=== PATIENT | male | born 1945 | race Caucasian/White ===

== ENCOUNTER → 2017-08-22 11:25 | Outpatient (CLI) | payer MEDICARE, SELFPAY ==
[2017-08-22 12:07] LABS: Amphetamine Urine VISTA NEGATIVE (<1000 ng/mL); Barbiturate Urine VISTA NEGATIVE (< 200 ng/mL); Benzodiazepine Urine VISTA NEGATIVE (< 200 ng/mL); Cocaine Urine VISTA NEGATIVE (< 300 ng/mL); Ecstacy Urine VISTA NEGATIVE (< 500 ng/mL); Methadone Urine VISTA NEGATIVE (< 300 ng/mL); PCP Urine VISTA NEGATIVE (< 25 ng/mL); THC Urine VISTA NEGATIVE (< 50 ng/mL); Vista UDS pH Range 5
== END ==
PROVIDERS: Family Provider Family Medicine; PCP Family Medicine; Visit Provider Anesthesiology Pain Medicine
DX: F11.20 Opioid dependence, uncomplicated (principal)
CPT/HCPCS: 80307

== ENCOUNTER 2018-02-08 13:00 | Inpatient (IN) | payer MEDICARE, SELFPAY ==
[2018-02-08 13:01] VITALS: BP 183/87; PULSE 92; RESP 16; TEMP 36.6; O2SAT 97; BMI 20.7
--- NOTE | 2018-02-08 13:18 | CT_ITS ---
STUDY: CT ABDOMEN AND PELVIS WITHOUT CONTRAST REASON FOR EXAM: Male, 72 years old. LEFT FLANK PAIN RADIATION DOSAGE (If Supplied By Facility): CTDIvol = ( 6.05 ) mGy, DLP = ( 284.26 ) mGycm TECHNIQUE: Transaxial images were obtained from the dome of the diaphragm to the symphysis pubis without oral contrast, and without intravenous contrast. Sagittal and coronal images were reconstructed. Individualized dose optimization techniques were used for this CT. COMPARISON: None. FINDINGS: The visualized lung bases are unremarkable. The visualized portions of the heart are within normal limits. Normal liver. Normal gallbladder and extrahepatic biliary system. Normal spleen. Normal pancreas. Normal bilateral adrenal glands. Bilateral kidney stones the largest measures 3 mm there is no hydronephrosis. Normal visualized stomach. Normal small intestine. There are multiple colonic diverticula consistent with diverticulosis. The appendix is visualized and appears normal. Normal abdominal aorta. Normal inferior vena cava. Normal retroperitoneum. Normal urinary bladder. There is a left-sided inguinal hernia containing adipose tissue. There are diffuse degenerative changes of the visualized lumbar spine. CT/Abdomen/Pelvis without Cont IMPRESSION: Bilateral kidney stones the largest measures 3 mm there is no hydronephrosis. Electronically Signed: Cliff Mas MD at 14:27 EDT Tel , Service support ,
[2018-02-08] MEDS: HYDROmorphone 1 MG/ML Syringe IV (13:31)
[2018-02-08] MEDS: Ondansetron 4 MG/2 ML Vial IV (13:31)
[2018-02-08] MEDS: 0.9% Normal Saline 1,000 ML 150 ML IV (13:31)
[2018-02-08 13:34] LABS: Absolute Lymphocyte Count 0.83 X10^3/ul (0.83-4.51); Absolute Neutrophil Count 3.1 X10^3/uL (2.0-7.7); Basophil# 0.04 X10^3/uL; Basophil% 0.9 % (0-1); Eosinophil# 0.07 X10^3/uL; Eosinophils% 1.6 % (0-5); Hematocrit 41.8 % (40-54); Hemoglobin 15.2 g/dl (13.0-16.5); Lymphocyte # 0.83 X10^3/ul (4.0); Lymphocyte % 18.6 % (19-41); Mean Corp Hgb Conc 36.4 g/gl (32-36); Mean Corpuscular Hgb 32.7 pg (27.0-32.0); Mean Corpuscular Volume 89.9 fL (80-94); Mean Platelet Vol. 9.6 fl (6.2-12.0); Monocyte% 8.9 % (0-10); Neutrophil # 3.11 X10^3/uL (2.7-7.7); Neutrophil % 69.6 % (47-70); POSITIVE COUNT NO; POSITIVE DIFFERENTIAL NO; POSITIVE MORPHOLOGY NO; Platelet Count 159 K/mm3 (150-450); RBC Distribution Width CV 12.1 % (11.6-14.6); RBC Distribution Width SD 39.6 fl (35.1-43.9); Red Blood Count 4.65 M/mm3 (4.6-6.2); White Blood Count 4.5 K/mm3 (4.4-11.0)
[2018-02-08 13:46] LABS: Anion Gap 7 (5-15); BUN 13 mg/dL (7-18); BUN/Creat Ratio 17.5 RATIO (10-20); Calcium,Total 8.9 mg/dL (8.5-10.1); Chloride 106 mmol/L (98-107); Creatinine, Serum 0.74 mg/dL (0.70-1.30); EST Glomerular Filtration Rate 110 mL/min (>60); Est Glom Filt Rate - Afr Amer 133 mL/min (>60); Estimated Creatinine Clearance 59.98 ml/min; Glucose 96 mg/dL (74-106); Potassium 3.9 mmol/L (3.5-5.1); Sodium Level 140 mmol/L (136-145)
[2018-02-08 14:17] LABS: Bacteria 0 SEEN /hpf (None Seen); Mucous, Urine 0 SEEN /hpf (<or=2+); Red Blood Cells-Urine 0 SEEN /hpf (0-5); White Blood Cells 0 SEEN /hpf (0-5)
[2018-02-08 14:22] LABS: Color, Urine Yellow (Yellow); Glucose, Dipstick Normal (Normal); Ketone-Dipstick Negative (Negative); Leukocyte Esterase-Dipstick Negative /ul (Negative); Nitrite-Dipstick Negative (Negative); Occult Blood-Urine Negative /ul (Negative); Protein-Dipstick Negative (Negative); Urine Bilirubin Dipstick Negative (Negative); Urine Clarity Sl. Cloudy (Clear); Urine Urobilinogen Normal (Normal); Urine pH 6.5 (5.0 - 8.0)
[2018-02-08 14:28] LABS: Squamous Epithelial Cells - UA 0-5 SEEN /hpf (0-5)
--- NOTE | 2018-02-08 15:00 | ED.DCSUM_ITS ---
- ER Visit Summary Date of Service: 02/08/18 Chief Complaint: [] History of Present Illness: The patient is a 72 M [pain complaint of back pain that started yesterday. Patient has history of chronic back pain and has been seeing Dr. Reagan as well as a neurosurgeon. Patient had an MRI about a year and a half ago that showed some herniated disks as well as arthritis. Patient denies any new injury or trauma. Patient was very active over the weekend. Pain became more severe yesterday and he saw Dr. Gregory in the office today who attempted to do a muscular injection which did not give him any relief. Patient complaining of pain mostly in his left lower back. Describes some discomfort into the groin areas bilaterally with some pressure-like sensations. He denies weakness in extremities or pain radiating down the legs. He denies any change in bowel or bladder function. He denies any fevers or recent illness.] Physical Examination: [HEENT-PERRLA, EOMI. Cranial nerves II through XII grossly intact. TMs clear. Mucous membranes moist. No adenopathy. Cardiovascular-regular rate and rhythm without murmur or ectopy Lungs-clear to auscultation, chest wall stable without crepitus or subcu emphysema Abdomen-normoactive bowel sounds, soft, nontender, no rebound or rigidity, no peritoneal signs. Back exam-patient has tenderness over the left lumbar paraspinal musculature and CVA tenderness on the left. Patient has negative straight leg raises. Deep tendon reflexes are plus 2 out of 4 bilaterally at the patella and Achilles. Patient has normal L5 extension bilaterally. Patient has normal sensation to light touch. Extremities-intact ?4, normal range of motion, normal pulses, atraumatic] Test Results: [CBC with differential obtained was normal. Chemistries unremarkable. Urinalysis was normal. CT flank obtained showed small stones in both kidneys but otherwise nothing acute] Emergency Department Course and Treatment: [Patient was medicated with Dilaudid 1 mg IV and Zofran.] Patient continues to complain of pain although he is quite somnolent now. Treatment Plan: [Admit for further pain control and evaluation of his back pain] Disposition: [Admit] Impression: [Intractable back pain] This note was generated with Cel[employer] software. It may contain incorrect words, spelling, and punctuation that were not noted in review of the chart prior to signing ED Disposition - Plan for ED Patient: Chief Complaint: Back Referrals: Varinder Pappas [Primary Care Provider] -
--- NOTE | 2018-02-08 15:11 | PCM.HP.STD ---
Problem List (1) Back pain Status: Acute Qualifiers: Back pain location: low back pain Chronicity: acute Back pain laterality: midline Sciatica presence: without sciatica Qualified Code(s): M54.5 - Low back pain History of Present Illness Date of Admission: 02/08/18 Chief Complaint: back pain The patient is a 72 year old M who has mild chronic back pain was in his normal state of health up until Tuesday where the patient was helping clear tree branches. Afterwards, patient was having acute back pain that would radiate anteriorly to his abdomen but not down his legs. Saw his pain management doctor on Tuesday and patient said that he was feeling better but only returned the pain return on Tuesday the patient again returned to pain management on Tuesday and received a trigger point injection but did not help this patient was sent to the emergency room. Emergency room patient had a lab workup that was on July 10. CT the abdomen pelvis that showed nonobstructing kidney stones. Patient received IV Dilaudid and is subsequently somnolent and unable to provide any history. History is obtained through ER physician as well as patient's daughter and at bedside. [] Past Medical History Medical History: Medical History (Last Updated 02/08/18 @ 15:13 by Austin Dinero DO) Herniated disc Spinal stenosis M48.00 Allergies No Known Allergies Allergy (Verified 02/08/18 13:03) Home Medications: Ambulatory Orders Medication Instructions Recorded Hydrocodone/Acetaminophen 1 tab PO Q6H PRN PRN 02/08/18 [Hydrocodone-Acetamin 5-325 mg] Meloxicam 1 tab PO DAILY 02/08/18 Surgical History: Surgical History (Last Reviewed 02/08/18 @ 15:12 by Austin Dinero DO) History of appendectomy Z98.890, Z90.49 foreign object removal Smoking Status: Smoker, status unknown - *Family History Maternal Family History: Family History (Last Reviewed 02/08/18 @ 15:13 by Austin Dinero DO) Mother CAD (coronary artery disease) Diabetes Hypertension Father CVA (cerebral vascular accident) Hypertension Review of Systems Unable to obtain accurate/complete ROS d/t: Unable to obtain as patient is somnolent from IV Dilaudid. Comment: Unable to obtain an adequate social history due to the patient's somnolence VTE Information - Inpt Only VTE Present on Admission: No VTE Pharm Prophylaxis ordered?: Yes Patient Problems: Active and Suspected Problems (Last Reviewed 05/17/17 @ 15:13 by Will Rodriguez) Back pain (Acute) - Physical Exam General: No apparent distress, - - Somnolent. Afebrile. HEENT: Atraumatic, Normocephalic Oral: Moist Mucosa, No Gingival or Mucosal Lesions/ Ulcerations Neck: No Nodes, Thyroid Normal Size and Texture Lungs: Clear to auscultation, Normal air movement, No rhonchi, No wheeze Cardiovascular: Regular rate, Regular Rhythm, Normal S1, Normal S2, No murmurs Abdomen: Bowel Sounds Present, Soft, Non Tender, Non-Distended Extremities: No edema, No Calf Tenderness Skin: No rashes, No breakdown Musculoskeletal: No Tenderness to Palpation of Joints or Extremities, No Muscle Wasting Neurological: Cranial nerves II-XII grossly intact, Deep Tendon Reflexes 2+/4 and Symmetrical Vital Signs Temp Pulse Resp BP Pulse Ox 36.6 C 92 16 183/87 H 97 02/08/18 13:01 02/08/18 13:01 02/08/18 13:01 02/08/18 13:01 02/08/18 13:01 Oxygen Delivery Method Room Air Weight: 63.503 kg Body Mass Index (BMI) 20.7 Laboratory Tests Past 24 Hrs 02/08/18 02/08/18 02/08/18 13:27 13:27 14:10 WBC 4.5 RBC 4.65 Hgb 15.2 Hct 41.8 MCV 89.9 MCH 32.7 H MCHC 36.4 H RDW 12.1 RDW Differential 39.6 Plt Count 159 MPV 9.6 Immature Gran % (Auto) 0.400 Neut % (Auto) 69.6 Lymph % (Auto) 18.6 L [place] % (Auto) 8.9 Eos % (Auto) 1.6 Baso % (Auto) 0.9 Absolute Neuts (auto) 3.1 Absolute Lymphs (auto) 0.83 Total Counted Not Reportable Sodium 140 Potassium 3.9 Chloride 106 Carbon Dioxide 27.0 Anion Gap 7 BUN 13 Creatinine 0.74 Estim Creat Clear Calc 59.98 Est GFR (MDRD) Af Amer 133 Est GFR (MDRD) Non-Af 110 BUN/Creatinine Ratio 17.5 Glucose 96 Calcium 8.9 Urine Color Yellow Urine Clarity Sl. Cloudy Urine pH 6.5 Ur Specific [place] 1.010 Urine Protein Negative Urine Glucose (UA) Normal Urine Ketones Negative Urine Occult Blood Negative Urine Nitrite Negative Urine Bilirubin Negative Urine Urobilinogen Normal Ur Leukocyte Esterase Negative Urine RBC 0 SEEN Urine WBC 0 SEEN Ur Squamous Epith Cells 0-5 SEEN Urine Bacteria 0 SEEN Urine Mucus 0 SEEN Assessment/Plan All Active Problems (Last Reviewed 05/17/17 @ 15:13 by Will Rodriguez) Back pain (Acute) 1. Acute on chronic back pain I suspect that this is more muscular given the timing of this happening after doing some activity will check an MRI of his lumbar spine To rule out any other acute process Patient is to someone from the. Patient will be able to resume his [place] once he is becomes more awake. Patient's and daughter state that he only takes about 1/2 tablet of [place] twice daily, so I feel that the patient probably has low tolerance to narcotics. They have been state that with higher doses of [place] he does not with that too. Toradol as needed, will hold the patient's meloxicam Consult Dr. Gregory Physical and occupational therapy evaluate and treat 2. DVT prophylaxis with low back rate heparin Code Visit OBSV E&M: 18442 Initial observation care L2
--- NOTE | 2018-02-08 15:16 | HP.PCM_ITS ---
Problem List (1) Back pain Status: Acute Qualifiers: Back pain location: low back pain Chronicity: acute Back pain laterality: midline Sciatica presence: without sciatica Qualified Code(s): M54.5 - Low back pain History of Present Illness Date of Admission: 02/08/18 Chief Complaint: back pain The patient is a 72 year old M who has mild chronic back pain was in his normal state of health up until Tuesday where the patient was helping clear tree branches. Afterwards, patient was having acute back pain that would radiate anteriorly to his abdomen but not down his legs. Saw his pain management doctor on Tuesday and patient said that he was feeling better but only returned the pain return on Tuesday the patient again returned to pain management on Tuesday and received a trigger point injection but did not help this patient was sent to the emergency room. Emergency room patient had a lab workup that was on July 10. CT the abdomen pelvis that showed nonobstructing kidney stones. Patient received IV Dilaudid and is subsequently somnolent and unable to provide any history. History is obtained through ER physician as well as patient's daughter and at bedside. [] Past Medical History Medical History: Medical History (Last Updated 02/08/18 @ 15:13 by Austin Dinero DO) Herniated disc Spinal stenosis M48.00 Allergies No Known Allergies Allergy (Verified 02/08/18 13:03) Home Medications: Ambulatory Orders Medication Instructions Recorded Hydrocodone/Acetaminophen 1 tab PO Q6H PRN PRN 02/08/18 [Hydrocodone-Acetamin 5-325 mg] Meloxicam 1 tab PO DAILY 02/08/18 Surgical History: Surgical History (Last Reviewed 02/08/18 @ 15:12 by Austin Dinero DO) History of appendectomy Z98.890, Z90.49 foreign object removal Smoking Status: Smoker, status unknown - *Family History Maternal Family History: Family History (Last Reviewed 02/08/18 @ 15:13 by Austin Dinero DO) Mother CAD (coronary artery disease) Diabetes Hypertension Father CVA (cerebral vascular accident) Hypertension Review of Systems Unable to obtain accurate/complete ROS d/t: Unable to obtain as patient is somnolent from IV Dilaudid. Comment: Unable to obtain an adequate social history due to the patient's somnolence VTE Information - Inpt Only VTE Present on Admission: No VTE Pharm Prophylaxis ordered?: Yes Patient Problems: Active and Suspected Problems (Last Reviewed 05/17/17 @ 15:13 by Will Rodriguez) Back pain (Acute) - Physical Exam General: No apparent distress, - - Somnolent. Afebrile. HEENT: Atraumatic, Normocephalic Oral: Moist Mucosa, No Gingival or Mucosal Lesions/ Ulcerations Neck: No Nodes, Thyroid Normal Size and Texture Lungs: Clear to auscultation, Normal air movement, No rhonchi, No wheeze Cardiovascular: Regular rate, Regular Rhythm, Normal S1, Normal S2, No murmurs Abdomen: Bowel Sounds Present, Soft, Non Tender, Non-Distended Extremities: No edema, No Calf Tenderness Skin: No rashes, No breakdown Musculoskeletal: No Tenderness to Palpation of Joints or Extremities, No Muscle Wasting Neurological: Cranial nerves II-XII grossly intact, Deep Tendon Reflexes 2+/4 and Symmetrical Vital Signs Temp Pulse Resp BP Pulse Ox 36.6 C 92 16 183/87 H 97 02/08/18 13:01 02/08/18 13:01 02/08/18 13:01 02/08/18 13:01 02/08/18 13:01 Oxygen Delivery Method Room Air Weight: 63.503 kg Body Mass Index (BMI) 20.7 Laboratory Tests Past 24 Hrs 02/08/18 02/08/18 02/08/18 13:27 13:27 14:10 WBC 4.5 RBC 4.65 Hgb 15.2 Hct 41.8 MCV 89.9 MCH 32.7 H MCHC 36.4 H RDW 12.1 RDW Differential 39.6 Plt Count 159 MPV 9.6 Immature Gran % (Auto) 0.400 Neut % (Auto) 69.6 Lymph % (Auto) 18.6 L [place] % (Auto) 8.9 Eos % (Auto) 1.6 Baso % (Auto) 0.9 Absolute Neuts (auto) 3.1 Absolute Lymphs (auto) 0.83 Total Counted Not Reportable Sodium 140 Potassium 3.9 Chloride 106 Carbon Dioxide 27.0 Anion Gap 7 BUN 13 Creatinine 0.74 Estim Creat Clear Calc 59.98 Est GFR (MDRD) Af Amer 133 Est GFR (MDRD) Non-Af 110 BUN/Creatinine Ratio 17.5 Glucose 96 Calcium 8.9 Urine Color Yellow Urine Clarity Sl. Cloudy Urine pH 6.5 Ur Specific [place] 1.010 Urine Protein Negative Urine Glucose (UA) Normal Urine Ketones Negative Urine Occult Blood Negative Urine Nitrite Negative Urine Bilirubin Negative Urine Urobilinogen Normal Ur Leukocyte Esterase Negative Urine RBC 0 SEEN Urine WBC 0 SEEN Ur Squamous Epith Cells 0-5 SEEN Urine Bacteria 0 SEEN Urine Mucus 0 SEEN Assessment/Plan All Active Problems (Last Reviewed 05/17/17 @ 15:13 by Will Rodriguez) Back pain (Acute) 1. Acute on chronic back pain * I suspect that this is more muscular given the timing of this happening after doing some activity * will check an MRI of his lumbar spine To rule out any other acute process * Patient is to someone from the. Patient will be able to resume his [place] once he is becomes more awake. Patient's and daughter state that he only takes about 1/2 tablet of [place] twice daily, so I feel that the patient probably has low tolerance to narcotics. They have been state that with higher doses of [place] he does not with that too. * Toradol as needed, will hold the patient's meloxicam * Consult Dr. Gregory * Physical and occupational therapy evaluate and treat 2. DVT prophylaxis with low back rate heparin Code Visit OBSV E&M: 74152 Initial observation care L2
[2018-02-08 15:19] VITALS: BP 179/84; PULSE 84; RESP 18; O2SAT 99
--- NOTE | 2018-02-08 15:19 | MRI_ITS ---
STUDY: MRI LUMBAR SPINE WITHOUT CONTRAST REASON FOR EXAM: Male, 72 years old. Chronic worsening back pain TECHNIQUE: Standardized fat and water weighted pulse sequences were obtained in the sagittal and axial planes. COMPARISON: None FINDINGS: T12-L1: Disc space narrowing and desiccation with discogenic endplate changes and anterior osteophytes. Bulging annulus with moderate to severe bilateral foraminal stenoses. Normal lumbar lordosis. Mild S shaped scoliosis. Normal conus medullaris that terminates at the L1 level. L1-2: Disc space narrowing and desiccation with discogenic endplate changes and anterior osteophytes. Bulging annulus and bilateral facet hypertrophy with mild central canal stenosis, moderate left lateral recess stenosis, and moderate to severe left foraminal stenosis. L2-3: Disc space narrowing and desiccation with discogenic endplate changes and anterior osteophytes. Bulging annulus and bilateral facet hypertrophy with mild central canal stenosis and moderate to severe left and moderate right foraminal stenoses. L3-4: Bulging annulus and bilateral facet hypertrophy with mild central canal stenosis and moderate to severe left and moderate right foraminal stenoses. L4-5: Disc space narrowing and desiccation with discogenic endplate changes and anterior osteophytes. Bulging annulus and bilateral facet hypertrophy with mild central canal stenosis and severe right and moderate left foraminal stenoses. L5-S1: Disc space narrowing and desiccation with discogenic endplate changes and anterior osteophytes. Bulging annulus and bilateral facet hypertrophy with severe bilateral foraminal stenoses. Normal visualized sacral ala. Normal visualized paraspinous soft tissue structures. MRI/Spine Lumbar (Routine) IMPRESSION: Multilevel degenerative disease as described. Severe foraminal stenoses are present on the right at L4-5 and bilaterally at L5-S1. Electronically Signed: Reji Balbuena MD at 3:58 EDT Tel , Service support ,
[2018-02-08 15:25] VITALS: BMI 20.7; BMI 21.0
[2018-02-08 15:40] VITALS: BP 178/96; PULSE 89; RESP 14; TEMP 36.7; O2SAT 98
--- NOTE | 2018-02-08 16:43 | NURSING ---
Just got back from MRI.
[2018-02-08] MEDS: Ketorolac 15 MG/ML Vial IV (17:26)
[2018-02-08] MEDS: 0.9% NaCl Peripheral Flush Adult/Peds IV (17:26)
[2018-02-08 17:28] VITALS: BP 159/90; PULSE 81; RESP 18; TEMP 37; O2SAT 96
[2018-02-08] MEDS: diazePAM 5 MG Tablet PO (20:30)
[2018-02-08] MEDS: Tamsulosin HCl 0.4 MG Capsule PO (20:30)
[2018-02-08 20:44] VITALS: BP 153/96; PULSE 92; RESP 16; TEMP 36.9; O2SAT 96
[2018-02-09] MEDS: Ketorolac 15 MG/ML Vial IV (02:16)
[2018-02-09] MEDS: 0.9% NaCl Peripheral Flush Adult/Peds IV ×3 (02:17→17:53)
[2018-02-09 02:21] VITALS: BP 131/77; PULSE 72; RESP 16; TEMP 36.9; O2SAT 95
[2018-02-09] MEDS: HYDROcodone Bitartrate/Apap 5/325 Tablet PO ×3 (04:00→21:26)
[2018-02-09] MEDS: diazePAM 5 MG Tablet PO ×2 (08:48→19:31)
[2018-02-09 08:50] VITALS: BP 156/70; PULSE 83; RESP 16; TEMP 36.7; O2SAT 94
[2018-02-09] MEDS: Enoxaparin 40 MG/0.4 ML Syringe SC (09:07)
--- NOTE | 2018-02-09 10:14 | PCM.PN.HOSP ---
Patient Problems: Active and Suspected Problems (Last Updated 02/08/18 @ 15:13 by Austin Dinero DO) Back pain (Acute) Subjective: Still in a significant amount of pain that is not managed by his previous pain regimen Vitals/I&O's: Vital Signs Temp Pulse Resp BP Pulse Ox 98.1 F 83 16 156/70 H 94 02/09/18 08:50 02/09/18 08:50 02/09/18 08:50 02/09/18 08:50 02/09/18 08:50 Oxygen Delivery Method Room Air Weight: 142 lb 3.17 oz Body Mass Index (BMI) 21.0 Intake and Output for Last 24 Hours 02/07/18 02/08/18 02/09/18 23:59 23:59 23:59 Intake Total 150 / 150 Output Total 490 / 490 Balance -340 / -340 General: Alert, Oriented x3, Cooperative, No apparent distress HEENT: Atraumatic, EOMI, Normocephalic Oral: Moist Mucosa Neck: Supple, No JVD Lungs: Clear to auscultation, Normal air movement, No rhonchi, No wheeze, No rales Cardiovascular: Regular rate, Regular Rhythm, Normal S1, Normal S2, No murmurs Abdomen: Soft, Non Tender, Non-Distended, No Hepato-splenomegaly Extremities: No edema, Capillary Refill Less than 3 Seconds Skin: No rashes, No breakdown Musculoskeletal: No Tenderness to Palpation of Joints or Extremities Neurological: Deep Tendon Reflexes 2+/4 and Symmetrical, Neuro grossly intact, Sensory exam intact to light touch and pain Psych/Mental Status: Normal Affect, Appropriate Laboratory Results 02/08/18 13:27: WBC 4.5, RBC 4.65, Hgb 15.2, Hct 41.8, MCV 89.9, MCH 32.7 H, MCHC 36.4 H, RDW 12.1, RDW Differential 39.6, Plt Count 159, MPV 9.6, Immature Gran % (Auto) 0.400, Neut % (Auto) 69.6, Lymph % (Auto) 18.6 L, [place] % (Auto) 8.9, Eos % (Auto) 1.6, Baso % (Auto) 0.9, Absolute Neuts (auto) 3.1, Absolute Lymphs (auto) 0.83, Total Counted Not Reportable 02/08/18 13:27: Sodium 140, Potassium 3.9, Chloride 106, Carbon Dioxide 27.0, Anion Gap 7, BUN 13, Creatinine 0.74, Estim Creat Clear Calc 59.98, Est GFR (MDRD) Af Amer 133, Est GFR (MDRD) Non-Af 110, BUN/Creatinine Ratio 17.5, Glucose 96, Calcium 8.9 02/08/18 14:10: Urine Color Yellow, Urine Clarity Sl. Cloudy, Urine pH 6.5, Ur Specific [place] 1.010, Urine Protein Negative, Urine Glucose (UA) Normal, Urine Ketones Negative, Urine Occult Blood Negative, Urine Nitrite Negative, Urine Bilirubin Negative, Urine Urobilinogen Normal, Ur Leukocyte Esterase Negative, Urine RBC 0 SEEN, Urine WBC 0 SEEN, Ur Squamous Epith Cells 0-5 SEEN, Urine Bacteria 0 SEEN, Urine Mucus 0 SEEN Current Medications Acetaminophen (Tylenol) 650 mg PO Q6H PRN PRN PRN Reason: Mild Pain (1-3)/Temp > 100.7 F Hydrocodone Bitart/Acetaminophen ([place] 5mg-325mg) 1 tablet PO Q6H PRN PRN PRN Reason: PAIN Last Admin: 02/09/18 04:00 Dose: 1 tablet Diazepam (Valium) 5 mg PO TID PRN PRN PRN Reason: muscle spasms Last Admin: 02/09/18 08:48 Dose: 5 mg Enoxaparin Sodium (Lovenox) 40 mg SC DAILY@1000 RAKAN Last Admin: 02/09/18 09:07 Dose: 40 mg Ketorolac Tromethamine (Toradol) 30 mg IV Q6H PRN PRN PRN Reason: PAIN Stop: 02/14/18 08:01 Magnesium Hydroxide (Milk Of Magnesia) 30 ml PO DAILY PRN PRN PRN Reason: Constipation Ondansetron HCl (Zofran) 4 mg IV Q8H PRN PRN PRN Reason: NAUSEA Sodium Chloride () 5 - 30 ml IV UD PRN PRN Reason: SALINE FLUSH Last Admin: 02/09/18 02:17 Dose: 10 ml Tamsulosin HCl (Flomax) 0.4 mg PO DAILY@1730 RAKAN Last Admin: 02/08/18 20:30 Dose: 0.4 mg Medical Necessity - Tobacco Use Smoking Status: Former smoker Tobacco Use: Pipe Assessment/Plan All Active Problems (Last Updated 02/08/18 @ 15:13 by Austin Dinero DO) Back pain (Acute) 1. Acute on chronic back pain - MRI with significant foraminal stenosis at L4-5 and 5-S1 - States he saw a surgeon who said he was non-operative candidate - No stenosis or cauda equina - Will continue with pain management and consult Dr. Bri Murcia to help with spasms - PT/OT 2. Nephrolithiasis - Unsure if the kidney stones are new - Will c/w toradal 30 mg for the pain and add flomax DVT: Heparin Diet: Regular Code Visit Inpatient E&M: [id number] Subs Hosp L2
[2018-02-09] MEDS: Ketorolac 30 MG/ML Syringe IV (12:23)
[2018-02-09 14:20] VITALS: BP 141/66; PULSE 94; RESP 16; TEMP 36.8; O2SAT 97
--- NOTE | 2018-02-09 14:38 | CASEMGMT ---
RN CM Assessment. PCP: Dr. Pappas Pharmacy: [facility] Living arrangements: lives with in two story home. Did not use ambulatory devices prior to admission. Intro role of CM to patient, his and daughter in room. Discussed options on dc of SNF vs home with [facility]. Pt only ambulated 5'today and was very painful. Pt would like to return home, but safety concerns were discussed if pt could not safely ambulate longer distance. His bedroom is on second floor, however family is willing to bring bed to first floor. -Awaiting Dr. Gregory consult today and PT/OT tomorrow and will speak with pt/family again. DC PLAN: undetermined.
--- NOTE | 2018-02-09 15:45 | CHAPLAIN ---
Type of Pastoral Visit _x__ Initial Visit ___ Follow-up Visit ___ On-call Visit ___ General Patient Visit ___ Spiritual Assessment ___ Family Conference ___ Bereavement ___ Rapid Response ___ Code Blue ___ Other (describe below) Pastoral Care Referral From _x__ Patient ___ Family ___ Nurse ___ Physician ___ Gas Engine Repairer ___ Gift Shop Clerk ___ Other (describe below) Sacrament/Intervention ___ Active listening ___ Anointing ___ Mormon ___ Bereavement ___ Communion ___ Selin exploration ___ ___ Life review ___ Prayer ___ Reconciliation ___ Sacrament of Sick _x__ Supportive presence ___ Wedding ___ Other (describe below) Pastoral Comments family members in room visiting with patient; made offer of support as needed
[2018-02-09] MEDS: Tamsulosin HCl 0.4 MG Capsule PO (17:47)
[2018-02-09] MEDS: 0.9% Normal Saline 1,000 ML 100 ML IV (17:54)
[2018-02-09 20:50] VITALS: BP 135/69; PULSE 82; RESP 16; TEMP 36.9; O2SAT 97
[2018-02-10] VITALS (7 sets, daily range): BP systolic 135–153; BP diastolic 65–83; PULSE 71–104; RESP 14–20; TEMP 36.7–36.9; O2SAT 96–98
[2018-02-10] MEDS: 0.9% Normal Saline 1,000 ML 100 ML IV ×2 (02:59→14:55)
[2018-02-10] MEDS: Ketorolac 30 MG/ML Syringe IV ×3 (03:54→21:27)
--- NOTE | 2018-02-10 07:30 | NURSING ---
Called to update pt's daughter, Cathy, on pt's condition. She and her mom were wondering last night when Dr. Gregory would be in to see the pt so updated her that Dr. Gregory would not be in and that he wanted urology consulted for the pt's kidney stones. Also made her aware how drowsy pt was overnight. Pt's daughter stated that's how he gets with his pain medicine and that she is nervous about it. Emotional support provided and will pass on to dayshift RN.
--- NOTE | 2018-02-10 11:05 | CASEMGMT ---
Addendum entered by Jerry Boyle 02/10/18 13:15: walker script faxed to [facility]-pt has [employer] insurance. Original Note: RN CM Note. spoke with re: dc planning and PT notes. Pt is sleepy and not able to participate @ this time. Agreeable to script for wheeled walker being sent to [facility] for delivery to hospital and discussed PT recommendation for outpt and aquatic therapy. Script received from physician. -THORNE form reviewed with and signed. Copy to chart. -Anticipate home with outpt therapy. Stacy VELAN RN ACM
[2018-02-10] MEDS: Enoxaparin 40 MG/0.4 ML Syringe SC (11:13)
--- NOTE | 2018-02-10 13:28 | CASEMGMT ---
SW spoke w/pt, daughter and in room in regard to discharge planning, as pt needed the assist of 2 with therapy. Pt states he still plans to go home from here, rather than to a skilled nursing for rehab. SW asked if she feels she can manage pt at home, she states she does--states they plan to bring the bed downstairs. states they got a walker, asked about the outpt therapy and possible water therapy, states that the piano case maker was working on this. SW explained will ask the CM about this. SW did give the list of SNFs in network w/pt's [employer] in the event they change their mind and do not feel they can manage at home. SW remains available, did ask CM about outpt order, she has this for pt. AUSTIN Cartagena, COBOL ENGINEER
--- NOTE | 2018-02-10 14:17 | DCINST_ITS ---
- Discharge Diagnoses Current Active Problems: Current Active and Chronic Problems (Last Updated 02/08/18 @ 15:13 by Austin Dinero DO) Back pain (Acute) You will use the following diet at home:: No restrictions Your food should be the consistency of: Regular Your liquids should be the consistency of: Regular/Thin Call your doctor if you observe: Numbness or Tingling, Inability to urinate, Inability to have a bowel movement Allergies/Adverse Reactions: Allergies No Known Allergies Allergy (Verified 02/08/18 13:03) Medications to take at Discharge Hydrocodone/Acetaminophen [Hydrocodone-Acetamin 5-325 mg] 1 tab PO Q6H PRN PRN 02/08/18 Meloxicam 1 tab PO DAILY 02/08/18 Diazepam [Valium] 5 mg PO BID PRN #10 tab 02/10/18 The following prescriptions were given: Diazepam [Valium] 5 mg PO BID PRN #10 tab PRN Reason: Muscle Spasm Primary Care Physician: Varinder Pappas [Primary Care Provider] - Please follow up with your Primary Care Physician in: in 3-5 days Test Results: Test results from this visit will be discussed in further detail at your follow- up appointment, if applicable.
--- NOTE | 2018-02-10 14:18 | PCM.DC.SUM ---
Discharge Date and Diagnosis - Problem List Patient Problems: Active and Suspected Problems (Last Updated 02/08/18 @ 15:13 by Austin Dinero DO) Back pain (Acute) Date of Admission: 02/08/18 Date of Discharge: 02/10/18 - Primary Discharge Diagnosis Active and Suspected Problems (Last Updated 02/08/18 @ 15:13 by Austin Dinero DO) Back pain (Acute) Hospital Course and Treatment Imaging Results: CT abd/pelvis: IMPRESSION: Bilateral kidney stones the largest measures 3 mm there is no hydronephrosis MRI Lumbar: IMPRESSION: Multilevel degenerative disease as described. Severe foraminal stenoses are present on the right at L4-5 and bilaterally at L5-S1. Consults: Pain Management Operations: None Procedures: None Summary of Care Provided: HPI: The patient is a 72 year old M who has mild chronic back pain was in his normal state of health up until Tuesday where the patient was helping clear tree branches. Afterwards, patient was having acute back pain that would radiate anteriorly to his abdomen but not down his legs. Saw his pain management doctor on Tuesday and patient said that he was feeling better but only returned the pain return on Tuesday the patient again returned to pain management on Tuesday and received a trigger point injection but did not help this patient was sent to the emergency room. Emergency room patient had a lab workup that was on July 10. CT the abdomen pelvis that showed nonobstructing kidney stones. Patient received IV Dilaudid and is subsequently somnolent and unable to provide any history. History is obtained through ER physician as well as patient's daughter and at bedside. Vital Signs - 24 hr Temp Pulse Resp BP Pulse Ox 02/10/18 11:03 98.3 F 88 16 153/75 H 98 02/10/18 08:44 98.2 F 88 18 145/71 H 98 02/10/18 03:41 98.4 F 81 18 139/70 H 96 02/10/18 02:48 98.4 F 71 14 135/65 H 97 02/10/18 01:38 98.4 F 77 16 141/69 H 97 02/09/18 20:50 98.4 F 82 16 135/69 H 97 General: Alert, Oriented x3, Cooperative, No apparent distress HEENT: Atraumatic, EOMI, Normocephalic Oral: Moist Mucosa Neck: Supple, No JVD Lungs: Clear to auscultation, Normal air movement, No rhonchi, No wheeze, No rales Cardiovascular: Regular rate, Regular Rhythm, Normal S1, Normal S2, No murmurs Abdomen: Soft, Non Tender, Non-Distended, No Hepato-splenomegaly Extremities: No edema, Capillary Refill Less than 3 Seconds Skin: No rashes, No breakdown Musculoskeletal: No Tenderness to Palpation of Joints or Extremities, left paraspinal muscle spasm and pain Neurological: Deep Tendon Reflexes 2+/4 and Symmetrical, Neuro grossly intact, Sensory exam intact to light touch and pain Hospital Cpu Call your doctor if you observe: Numbness or Tingling, Inability to urinate, Inability to have a bowel movement Home Medications: Medications to take at Discharge Hydrocodone/Acetaminophen [Hydrocodone-Acetamin 5-325 mg] 1 tab PO Q6H PRN PRN 02/08/18 Meloxicam 1 tab PO DAILY 02/08/18 Diazepam [Valium] 5 mg PO BID PRN #10 tab 02/10/18 Following Prescrptions Were Given to Patient: Diazepam [Valium] 5 mg PO BID PRN #10 tab PRN Reason: Muscle Spasm Primary Care Physician: Varinder Pappas [Primary Care Provider] - Please follow up with your Primary Care Physician in: in 3-5 days Medical Necessity - Tobacco Use Smoking Status: Former smoker Tobacco Use: Pipe
--- NOTE | 2018-02-10 14:49 | PCM.PN.HOSP ---
Patient Problems: Active and Suspected Problems (Last Updated 02/08/18 @ 15:13 by Austin Dinero DO) Back pain (Acute) Subjective: Still with significant pain. Unable to walk even with PT. Pain management consulted Objective: General: Alert, Oriented x3, Cooperative, No apparent distress HEENT: Atraumatic, EOMI, Normocephalic Oral: Moist Mucosa Neck: Supple, No JVD Lungs: Clear to auscultation, Normal air movement, No rhonchi, No wheeze, No rales Cardiovascular: Regular rate, Regular Rhythm, Normal S1, Normal S2, No murmurs Abdomen: Soft, Non Tender, Non-Distended, No Hepato-splenomegaly Extremities: No edema, Capillary Refill Less than 3 Seconds Skin: No rashes, No breakdown Musculoskeletal: No Tenderness to Palpation of Joints or Extremities, left paraspinal muscle spasm and pain Neurological: Deep Tendon Reflexes 2+/4 and Symmetrical, Neuro grossly intact, Sensory exam intact to light touch and pain Vitals/I&O's: Vital Signs Temp Pulse Resp BP Pulse Ox 98.3 F 88 16 153/75 H 98 02/10/18 11:03 02/10/18 11:03 02/10/18 11:03 02/10/18 11:03 02/10/18 11:03 Oxygen Delivery Method Room Air Weight: 142 lb 3.17 oz Body Mass Index (BMI) 21.0 Intake and Output for Last 24 Hours 02/08/18 02/09/18 02/10/18 23:59 23:59 23:59 Intake Total 1230 / 1230 2167 / 2167 Output Total 890 / 890 600 / 600 Balance 340 / 340 1567 / 1567 Current Medications Acetaminophen (Tylenol) 650 mg PO Q6H PRN PRN PRN Reason: Mild Pain (1-3)/Temp > 100.7 F Hydrocodone Bitart/Acetaminophen ([place] 5mg-325mg) 1 tablet PO Q6H PRN PRN PRN Reason: PAIN Last Admin: 02/09/18 21:26 Dose: 1 tablet Enoxaparin Sodium (Lovenox) 40 mg SC DAILY@1000 RAKAN Last Admin: 02/10/18 11:13 Dose: 40 mg Sodium Chloride () 1,000 mls @ 100 mls/hr IV .Q10H RAKAN Last Admin: 02/10/18 13:33 Dose: Not Given Ketorolac Tromethamine (Toradol) 30 mg IV Q6H PRN PRN PRN Reason: PAIN Stop: 02/14/18 08:01 Last Admin: 02/10/18 03:54 Dose: 30 mg Magnesium Hydroxide (Milk Of Magnesia) 30 ml PO DAILY PRN PRN PRN Reason: Constipation Morphine Sulfate () 2 - 4 mg IV Q4H PRN PRN PRN Reason: SEVERE PAIN (6-10/10) Morphine Sulfate () 2 - 4 mg IV Q4H PRN PRN PRN Reason: SEVERE PAIN (6-10/10) Ondansetron HCl (Zofran) 4 mg IV Q8H PRN PRN PRN Reason: NAUSEA Sodium Chloride () 5 - 30 ml IV UD PRN PRN Reason: SALINE FLUSH Last Admin: 02/09/18 17:53 Dose: 10 ml Tamsulosin HCl (Flomax) 0.4 mg PO DAILY@1730 [facility] Last Admin: 02/09/18 17:47 Dose: 0.4 mg Medical Necessity - Tobacco Use Smoking Status: Former smoker Tobacco Use: Pipe Assessment/Plan All Active Problems (Last Updated 02/08/18 @ 15:13 by Austin Dinero DO) Back pain (Acute) 1. Acute on chronic back pain - MRI with significant foraminal stenosis at L4-5 and 5-S1 - States he saw a surgeon who said he was non-operative candidate - No stenosis or cauda equina - C/s to Dr. Gregory who refuses to come in because the pain is d/t the kidney stone which are not in the ureter but in the kidney proper - Valium to help with spasms - PT/OT 2. Nephrolithiasis - Unsure if the kidney stones are new - Will c/w toradal 30 mg for the pain and c/w flomax in case the stones move DVT: Heparin Diet: Regular Code Visit OBSV E&M: 07720 Initial observation care L2
--- NOTE | 2018-02-10 14:52 | PN_ITS ---
Patient Problems: Active and Suspected Problems (Last Updated 02/08/18 @ 15:13 by Austin Dinero DO) Back pain (Acute) Subjective: Still with significant pain. Unable to walk even with PT. Pain management consulted Objective: General: Alert, Oriented x3, Cooperative, No apparent distress HEENT: Atraumatic, EOMI, Normocephalic Oral: Moist Mucosa Neck: Supple, No JVD Lungs: Clear to auscultation, Normal air movement, No rhonchi, No wheeze, No rales Cardiovascular: Regular rate, Regular Rhythm, Normal S1, Normal S2, No murmurs Abdomen: Soft, Non Tender, Non-Distended, No Hepato-splenomegaly Extremities: No edema, Capillary Refill Less than 3 Seconds Skin: No rashes, No breakdown Musculoskeletal: No Tenderness to Palpation of Joints or Extremities, left paraspinal muscle spasm and pain Neurological: Deep Tendon Reflexes 2+/4 and Symmetrical, Neuro grossly intact, Sensory exam intact to light touch and pain Vitals/I&O's: Vital Signs Temp Pulse Resp BP Pulse Ox 98.3 F 88 16 153/75 H 98 02/10/18 11:03 02/10/18 11:03 02/10/18 11:03 02/10/18 11:03 02/10/18 11:03 Oxygen Delivery Method Room Air Weight: 142 lb 3.17 oz Body Mass Index (BMI) 21.0 Intake and Output for Last 24 Hours 02/08/18 02/09/18 02/10/18 23:59 23:59 23:59 Intake Total 1230 / 1230 2167 / 2167 Output Total 890 / 890 600 / 600 Balance 340 / 340 1567 / 1567 Current Medications Acetaminophen (Tylenol) 650 mg PO Q6H PRN PRN PRN Reason: Mild Pain (1-3)/Temp > 100.7 F Hydrocodone Bitart/Acetaminophen ([place] 5mg-325mg) 1 tablet PO Q6H PRN PRN PRN Reason: PAIN Last Admin: 02/09/18 21:26 Dose: 1 tablet Enoxaparin Sodium (Lovenox) 40 mg SC DAILY@1000 [facility] Last Admin: 02/10/18 11:13 Dose: 40 mg Sodium Chloride () 1,000 mls @ 100 mls/hr IV .Q10H [facility] Last Admin: 02/10/18 13:33 Dose: Not Given Ketorolac Tromethamine (Toradol) 30 mg IV Q6H PRN PRN PRN Reason: PAIN Stop: 02/14/18 08:01 Last Admin: 02/10/18 03:54 Dose: 30 mg Magnesium Hydroxide (Milk Of Magnesia) 30 ml PO DAILY PRN PRN PRN Reason: Constipation Morphine Sulfate () 2 - 4 mg IV Q4H PRN PRN PRN Reason: SEVERE PAIN (6-10/10) Morphine Sulfate () 2 - 4 mg IV Q4H PRN PRN PRN Reason: SEVERE PAIN (6-10/10) Ondansetron HCl (Zofran) 4 mg IV Q8H PRN PRN PRN Reason: NAUSEA Sodium Chloride () 5 - 30 ml IV UD PRN PRN Reason: SALINE FLUSH Last Admin: 02/09/18 17:53 Dose: 10 ml Tamsulosin HCl (Flomax) 0.4 mg PO DAILY@1730 [facility] Last Admin: 02/09/18 17:47 Dose: 0.4 mg Medical Necessity - Tobacco Use Smoking Status: Former smoker Tobacco Use: Pipe Assessment/Plan All Active Problems (Last Updated 02/08/18 @ 15:13 by Austin Dinero DO) Back pain (Acute) 1. Acute on chronic back pain - MRI with significant foraminal stenosis at L4-5 and 5-S1 - States he saw a surgeon who said he was non-operative candidate - No stenosis or cauda equina - C/s to Dr. Gregory who refuses to come in because the pain is d/t the kidney stone which are not in the ureter but in the kidney proper - Valium to help with spasms - PT/OT 2. Nephrolithiasis - Unsure if the kidney stones are new - Will c/w toradal 30 mg for the pain and c/w flomax in case the stones move DVT: Heparin Diet: Regular Code Visit OBSV E&M: 51431 Initial observation care L2
--- NOTE | 2018-02-10 14:54 | CASEMGMT ---
RN CM Note: Call to JOELLE Thomas who states they were not able to ambulate pt due to pain. and daughter are not comfortable taking pt home as he has great difficulty ambulating. Call to Dr. Carson, agreeable to have pt remain tonight. Family is moving 2nd floor bed to downstairs and will be available to assist pt. Home Health declined, may consider outpt therapy-script given to . -[facility] called, walker script received and will be delivered this afternoon. Stacy KATHLEEN RN ACM
--- NOTE | 2018-02-10 15:01 | CHAPLAIN ---
Type of Pastoral Visit ___ Initial Visit _x__ Follow-up Visit ___ On-call Visit ___ General Patient Visit ___ Spiritual Assessment ___ Family Conference ___ Bereavement ___ Rapid Response ___ Code Blue ___ Other (describe below) Pastoral Care Referral From _x__ Patient ___ Family ___ Nurse ___ Physician ___ Hot Frame Tender ___ Cigar Head Pegger ___ Other (describe below) Sacrament/Intervention _x__ Active listening ___ Anointing ___ Sikh ___ Bereavement ___ Communion ___ Selin exploration ___ _x__ Life review _x__ Prayer ___ Reconciliation ___ Sacrament of Sick _x__ Supportive presence ___ Wedding ___ Other (describe below) Pastoral Comments had more time today with patient to hear more of his health history and how he herlinda with pain and limitations; family members are with him but give him more opportunity to talk; pt has hobbies that are helpful; pt welcomed prayer and visit
[2018-02-10] MEDS: Tamsulosin HCl 0.4 MG Capsule PO (17:41)
[2018-02-10] MEDS: Acetaminophen 325 MG Tablet 650 MG PO (19:52)
[2018-02-10] MEDS: 0.9% NaCl Peripheral Flush Adult/Peds IV (21:27)
[2018-02-11 01:55] VITALS: BP 146/76; PULSE 69; RESP 16; TEMP 36.2; O2SAT 97
[2018-02-11] MEDS: Acetaminophen 325 MG Tablet 650 MG PO (02:03)
[2018-02-11] MEDS: diazePAM 5 MG Tablet PO ×2 (02:03→10:59)
[2018-02-11] MEDS: 0.9% Normal Saline 1,000 ML 100 ML IV ×3 (02:04→20:43)
[2018-02-11 06:10] VITALS: BP 161/81; PULSE 57; RESP 16; TEMP 36.4; O2SAT 96
[2018-02-11] MEDS: 0.9% NaCl Peripheral Flush Adult/Peds IV ×2 (06:17→17:06)
[2018-02-11] MEDS: Ketorolac 30 MG/ML Syringe IV ×2 (06:17→17:06)
[2018-02-11 08:07] VITALS: BP 157/78; PULSE 79; RESP 18; TEMP 36.9; O2SAT 98
[2018-02-11] MEDS: Enoxaparin 40 MG/0.4 ML Syringe SC (09:21)
--- NOTE | 2018-02-11 09:44 | PN_ITS ---
Patient Problems: Active and Suspected Problems (Last Updated 02/08/18 @ 15:13 by Austin Dinero DO) Back pain (Acute) Subjective: Continues to be in pain, the valium helps some and the narcotics snow him. He was unable to walk with therapy yesterday, will attempt again today. Not for a lack of effort, but because of the pain. Objective: General: Alert, Oriented x3, Cooperative, No apparent distress HEENT: Atraumatic, EOMI, Normocephalic Oral: Moist Mucosa Neck: Supple, No JVD Lungs: Clear to auscultation, Normal air movement, No rhonchi, No wheeze, No rales Cardiovascular: Regular rate, Regular Rhythm, Normal S1, Normal S2, No murmurs Abdomen: Soft, Non Tender, Non-Distended, No Hepato-splenomegaly Extremities: No edema, Capillary Refill Less than 3 Seconds Skin: No rashes, No breakdown Musculoskeletal: No Tenderness to Palpation of Joints or Extremities, left paraspinal muscle spasm and pain Neurological: Deep Tendon Reflexes 2+/4 and Symmetrical, Neuro grossly intact, Sensory exam intact to light touch and pain Vitals/I&O's: Vital Signs Temp Pulse Resp BP Pulse Ox 98.4 F 79 18 157/78 H 98 02/11/18 08:07 02/11/18 08:07 02/11/18 08:07 02/11/18 08:07 02/11/18 08:07 Oxygen Delivery Method Room Air Weight: 142 lb 3.17 oz Body Mass Index (BMI) 21.0 Intake and Output for Last 24 Hours 02/09/18 02/10/18 02/11/18 23:59 23:59 23:59 Intake Total 1230 / 1230 3568 / 3568 1542 / 1542 Output Total 890 / 890 1400 / 1400 1375 / 1375 Balance 340 / 340 2168 / 2168 167 / 167 Current Medications Acetaminophen (Tylenol) 650 mg PO Q6H PRN PRN PRN Reason: Mild Pain (1-3)/Temp > 100.7 F Last Admin: 02/11/18 02:03 Dose: 650 mg Hydrocodone Bitart/Acetaminophen ([place] 5mg-325mg) 1 tablet PO Q6H PRN PRN PRN Reason: PAIN Last Admin: 10/04/18 21:26 Dose: 1 tablet Diazepam (Valium) 5 mg PO TID PRN PRN PRN Reason: MUSCLE SPASM Last Admin: 02/11/18 02:03 Dose: 5 mg Enoxaparin Sodium (Lovenox) 40 mg SC DAILY@1000 [facility] Last Admin: 02/11/18 09:21 Dose: 40 mg Sodium Chloride () 1,000 mls @ 100 mls/hr IV .Q10H [facility] Last Admin: 02/11/18 02:04 Dose: 100 mls/hr Ketorolac Tromethamine (Toradol) 30 mg IV Q6H PRN PRN PRN Reason: PAIN Stop: 02/14/18 08:01 Last Admin: 02/11/18 06:17 Dose: 30 mg Magnesium Hydroxide (Milk Of Magnesia) 30 ml PO DAILY PRN PRN PRN Reason: Constipation Morphine Sulfate () 2 - 4 mg IV Q4H PRN PRN PRN Reason: SEVERE PAIN (6-10/10) Morphine Sulfate () 2 - 4 mg IV Q4H PRN PRN PRN Reason: SEVERE PAIN (6-10/10) Ondansetron HCl (Zofran) 4 mg IV Q8H PRN PRN PRN Reason: NAUSEA Sodium Chloride () 5 - 30 ml IV UD PRN PRN Reason: SALINE FLUSH Last Admin: 02/11/18 06:17 Dose: 10 ml Tamsulosin HCl (Flomax) 0.4 mg PO DAILY@1730 [facility] Last Admin: 02/10/18 17:41 Dose: 0.4 mg Medical Necessity - Tobacco Use Smoking Status: Former smoker Tobacco Use: Pipe Assessment/Plan All Active Problems (Last Updated 02/08/18 @ 15:13 by Austin Dinero DO) Back pain (Acute) 1. Acute on chronic back pain - MRI with significant foraminal stenosis at L4-5 and 5-S1 - States he saw a surgeon who said he was non-operative candidate - No stenosis or cauda equina - C/s to Dr. Gregory who refuses to come in to see the patient he sent to the ER, because he thinks the pain is d/t the kidney stone which are not in the ureter but in the kidney proper - Valium to help with spasms - PT/OT 2. Nephrolithiasis - Unsure if the kidney stones are new - Will c/w toradal 30 mg for the pain and c/w flomax in case the stones move Dispo: Will need to discuss with him and family about home vs SNF depending on what PT says. If he chooses SNF, he will have to stay until tuesday and there is no guarantee that insurance will pay. DVT: Heparin Diet: Regular Code Visit OBSV E&M: 04479 Initial observation care L2
--- NOTE | 2018-02-11 11:12 | CASEMGMT ---
Social Work Note COLTON Hall updated this worker that pt's Lety and pt's daughter are presently in room and would like to speak to this worker about discharge plans. SW entered pt's room, introduced self and role at [facility]. Pt's ands daughter state that they were informed pt can't safely return home at discharge as pt is requiring much assistance at this time. Pt's Lety and daughter would like a referral sent to TCU. Pt's daughter also mentioned RU but doesn't know if pt will be able to handle three hours of therapy a day with currently how pt is. SW explained that this worker can make referral to TCU/RU and that referral won't be reviewed until Tuesday as admissions is not in on the weekend. SW also explained that once facility has accepted pt pre-cert will need to be obtained from pt's insurance. Pt's and daughter state understanding. SW placed a call to referral line and left referral for TCU vs. RU Plan: TCU/RU pending acceptance and pre-cert Nia Vigil MOLD SHOP SUPERVISOR, CARBON SETTER
[2018-02-11 12:10] VITALS: BP 176/87; PULSE 72; RESP 18; TEMP 36.7; O2SAT 98
--- NOTE | 2018-02-11 14:27 | NURSING ---
PT RESTING IN BED WITH EYES CLOSED, RESP EASY
[2018-02-11] MEDS: Tamsulosin HCl 0.4 MG Capsule PO (17:06)
[2018-02-11 17:15] VITALS: BP 187/77; PULSE 73; RESP 18; TEMP 36.9; O2SAT 96
--- NOTE | 2018-02-11 18:32 | NURSING ---
PT RESTING IN BED WITH EYES CLOSED, RESP EASY
[2018-02-11 20:22] VITALS: BP 161/87; PULSE 66; RESP 16; TEMP 37.2; O2SAT 97
[2018-02-11] MEDS: HYDROcodone Bitartrate/Apap 5/325 Tablet PO (20:32)
[2018-02-12 02:02] VITALS: BP 160/78; PULSE 72; RESP 16; TEMP 36.8; O2SAT 96
[2018-02-12] MEDS: 0.9% Normal Saline 1,000 ML 100 ML IV ×2 (06:07→16:05)
[2018-02-12 06:46] LABS: Absolute Lymphocyte Count 0.88 X10^3/ul (0.83-4.51); Absolute Neutrophil Count 5.8 X10^3/uL (2.0-7.7); Basophil# 0.01 X10^3/uL; Basophil% 0.1 % (0-1); Eosinophil# 0.05 X10^3/uL; Eosinophils% 0.7 % (0-5); Hematocrit 40.5 % (40-54); Hemoglobin 14.1 g/dl (13.0-16.5); Lymphocyte # 0.88 X10^3/ul (4.0); Lymphocyte % 12.4 % (19-41); Mean Corp Hgb Conc 34.8 g/gl (32-36); Mean Corpuscular Hgb 31.8 pg (27.0-32.0); Mean Corpuscular Volume 91.2 fL (80-94); Monocyte# 0.39 X10^3/uL; Monocyte% 5.5 % (0-10); Neutrophil # 5.76 X10^3/uL (2.7-7.7); Neutrophil % 81.3 % (47-70); Platelet Count 150 K/mm3 (150-450); RBC Distribution Width CV 12.5 % (11.6-14.6); RBC Distribution Width SD 41.9 fl (35.1-43.9); Red Blood Count 4.44 M/mm3 (4.6-6.2); White Blood Count 7.1 K/mm3 (4.4-11.0)
[2018-02-12 06:58] LABS: POSITIVE COUNT NO; POSITIVE DIFFERENTIAL NO; POSITIVE MORPHOLOGY NO
[2018-02-12 07:02] LABS: Anion Gap 7 (5-15); BUN 15 mg/dL (7-18); BUN/Creat Ratio 24.7 RATIO (10-20); Calcium,Total 8.4 mg/dL (8.5-10.1); Chloride 110 mmol/L (98-107); Creatinine, Serum 0.61 mg/dL (0.70-1.30); EST Glomerular Filtration Rate 139 mL/min (>60); Est Glom Filt Rate - Afr Amer 168 mL/min (>60); Estimated Creatinine Clearance 60.92 ml/min; Glucose 104 mg/dL (74-106); Sodium Level 141 mmol/L (136-145)
[2018-02-12 08:42] VITALS: BP 176/93; PULSE 68; RESP 18; TEMP 36.7; O2SAT 99
[2018-02-12] MEDS: diazePAM 5 MG Tablet PO ×2 (09:24→17:31)
[2018-02-12] MEDS: Acetaminophen 325 MG Tablet 650 MG PO ×2 (09:25→17:31)
[2018-02-12] MEDS: Morphine 2 MG/ML Syringe IV (09:32)
[2018-02-12] MEDS: 0.9% NaCl Peripheral Flush Adult/Peds IV ×2 (09:33→21:33)
[2018-02-12] MEDS: Enoxaparin 40 MG/0.4 ML Syringe SC (09:37)
--- NOTE | 2018-02-12 09:44 | NURSING ---
pt lying in bed with tears in eyes. when asked what he would rate his pain pt stated I can live with it. Therapy attempted to work with pt but pt unable to tolerate most of activities due to pain. This RN educated pt on pain management and medication given. Will continue to monitor.
--- NOTE | 2018-02-12 10:21 | PCM.PN.HOSP ---
Patient Problems: Active and Suspected Problems (Last Updated 02/08/18 @ 15:13 by Austin Dinero DO) Back pain (Acute) Subjective: He is in significant pain this morning, first time I have seen him in tears. Left paraspinal muscle is still in spasm. Objective: General: Alert, Oriented x3, Cooperative, crying HEENT: Atraumatic, EOMI, Normocephalic Oral: Moist Mucosa Neck: Supple, No JVD Lungs: Clear to auscultation, Normal air movement, No rhonchi, No wheeze, No rales Cardiovascular: tachycardic, Regular Rhythm, Normal S1, Normal S2, No murmurs Abdomen: Soft, Non Tender, Non-Distended, No Hepato-splenomegaly Extremities: No edema, Capillary Refill Less than 3 Seconds Skin: No rashes, No breakdown Musculoskeletal: No Tenderness to Palpation of Joints or Extremities, left paraspinal muscle spasm and significant pain Vitals/I&O's: Vital Signs Temp Pulse Resp BP Pulse Ox 98.0 F 68 18 176/93 H 99 02/12/18 08:42 02/12/18 08:42 02/12/18 08:42 02/12/18 08:42 02/12/18 08:42 Oxygen Delivery Method Room Air Weight: 142 lb 3.17 oz Body Mass Index (BMI) 21.0 Intake and Output for Last 24 Hours 02/10/18 02/11/18 02/12/18 23:59 23:59 23:59 Intake Total 3568 / 3568 3182 / 3182 1429 / 1429 Output Total 1400 / 1400 2275 / 2275 2170 / 2170 Balance 2168 / 2168 907 / 907 -741 / -741 Laboratory Results 02/12/18 06:15: WBC 7.1, RBC 4.44 L, Hgb 14.1, Hct 40.5, MCV 91.2, MCH 31.8, MCHC 34.8, RDW 12.5, RDW Differential 41.9, Plt Count 150, MPV 10.0, Immature Gran % (Auto) 0.000, Neut % (Auto) 81.3 H, Lymph % (Auto) 12.4 L, Josephine % (Auto) 5.5, Eos % (Auto) 0.7, Baso % (Auto) 0.1, Absolute Neuts (auto) 5.8, Absolute Lymphs (auto) 0.88, Total Counted Not Reportable 02/12/18 06:15: Sodium 141, Potassium 4.0, Chloride 110 H, Carbon Dioxide 24.0, Anion Gap 7, BUN 15, Creatinine 0.61 L, Estim Creat Clear Calc 60.92, Est GFR (MDRD) Af Amer 168, Est GFR (MDRD) Non-Af 139, BUN/Creatinine Ratio 24.7 H, Glucose 104, Calcium 8.4 L Current Medications Acetaminophen (Tylenol) 650 mg PO Q6H PRN PRN PRN Reason: Mild Pain (1-3)/Temp > 100.7 F Last Admin: 02/12/18 09:25 Dose: 650 mg Hydrocodone Bitart/Acetaminophen ([place] 5mg-325mg) 1 tablet PO Q6H PRN PRN PRN Reason: PAIN Last Admin: 02/11/18 20:32 Dose: 0.5 tablet Diazepam (Valium) 5 mg PO TID PRN PRN PRN Reason: MUSCLE SPASM Last Admin: 02/12/18 09:24 Dose: 2.5 mg Enoxaparin Sodium (Lovenox) 40 mg SC DAILY@1000 RAKAN Last Admin: 02/12/18 09:37 Dose: 40 mg Sodium Chloride () 1,000 mls @ 100 mls/hr IV .Q10H RAKAN Last Admin: 02/12/18 06:07 Dose: 100 mls/hr Ketorolac Tromethamine (Toradol) 30 mg IV Q6H PRN PRN PRN Reason: PAIN Stop: 02/14/18 08:01 Last Admin: 02/11/18 17:06 Dose: 30 mg Magnesium Hydroxide (Milk Of Magnesia) 30 ml PO DAILY PRN PRN PRN Reason: Constipation Morphine Sulfate () 2 - 4 mg IV Q4H PRN PRN PRN Reason: SEVERE PAIN (6-10/10) Morphine Sulfate () 2 - 4 mg IV Q4H PRN PRN PRN Reason: SEVERE PAIN (6-10/10) Last Admin: 02/12/18 09:32 Dose: 0.5 mg Ondansetron HCl (Zofran) 4 mg IV Q8H PRN PRN PRN Reason: NAUSEA Sodium Chloride () 5 - 30 ml IV UD PRN PRN Reason: SALINE FLUSH Last Admin: 02/12/18 09:33 Dose: 10 ml Tamsulosin HCl (Flomax) 0.4 mg PO DAILY@1730 [facility] Last Admin: 02/11/18 17:06 Dose: 0.4 mg Medical Necessity - Tobacco Use Smoking Status: Former smoker Tobacco Use: Pipe Assessment/Plan All Active Problems (Last Updated 02/08/18 @ 15:13 by Austin Dinero DO) Back pain (Acute) 1. Acute on chronic back pain - MRI with significant foraminal stenosis at L4-5 and 5-S1 - States he saw a surgeon who said he was non-operative candidate - No stenosis or cauda equina - C/s to Dr. Gregory who refuses to come in to see the patient he sent to the ER, because he thinks the pain is d/t the kidney stone which are not in the ureter but in the kidney proper - Valium to help with spasms, will add flexeril - PT/OT 2. Nephrolithiasis - Unsure if the kidney stones are new - Will c/w toradal 30 mg for the pain and c/w flomax in case the stones move Dispo: Will need to discuss with him and family about home vs SNF depending on what PT says. If he chooses SNF, he will have to stay until tuesday and there is no guarantee that insurance will pay. DVT: Heparin Diet: Regular Code Visit OBSV E&M: 99041 Initial observation care L2
[2018-02-12] MEDS: Ketorolac 30 MG/ML Syringe IV (15:58)
[2018-02-12] MEDS: Tamsulosin HCl 0.4 MG Capsule PO (15:58)
[2018-02-12 16:21] VITALS: BP 170/92; PULSE 79; RESP 18; TEMP 36.8; O2SAT 98
[2018-02-12 21:30] VITALS: BP 175/85; PULSE 63; RESP 18; TEMP 36.7; O2SAT 96
[2018-02-12] MEDS: fentaNYL 100 MCG/2 ML Ampul 25 MCG IV (21:32)
[2018-02-13 02:30] VITALS: BP 155/89; PULSE 62; RESP 18; TEMP 36.7; O2SAT 96
[2018-02-13] MEDS: 0.9% Normal Saline 1,000 ML 100 ML IV (02:33)
[2018-02-13] MEDS: HYDROcodone Bitartrate/Apap 5/325 Tablet PO ×2 (02:38→14:03)
[2018-02-13] MEDS: Magnesium Hydroxide 30 ML UDC PO (02:38)
[2018-02-13 08:20] VITALS: BP 145/88; PULSE 69; RESP 18; TEMP 36.8; O2SAT 96
[2018-02-13 08:22] VITALS: PULSE 70
[2018-02-13] MEDS: Acetaminophen 325 MG Tablet 650 MG PO (08:36)
--- NOTE | 2018-02-13 09:55 | CASEMGMT ---
Social Work Note SW spoke with Olinda in TCU who states there are no beds in TCU at this time. SW to meet with pt and talk to pt's family about other facilities for placement. Plan: SNF pending acceptance and pre-cert Nia Vigil TENNIS BALL COVERER HAND, PHARMACY TEACHER
[2018-02-13] MEDS: Enoxaparin 40 MG/0.4 ML Syringe SC (09:58)
[2018-02-13] MEDS: 0.9% NaCl Peripheral Flush Adult/Peds IV ×3 (11:07→23:53)
--- NOTE | 2018-02-13 12:42 | CASEMGMT ---
Addendum entered by Nia Vigil 02/13/18 13:36: SW spoke with Josephine at [facility] stating she is able to accept pt and will submit for pre-cert. Original Note: Social Work Note SW in to speak with pt, pt's and daughter present in room. SW updated pt, pt's and pt's daughter that TCU currently has no beds and doesn't think to have beds until end of this week. Per pt's Lety she would like a referral sent to [facility] in [place] as this is close to home. SW faxed referral to Josephine at [facility]. Plan: [facility] pending acceptance and pre-cert Nia Vigil BALLISTICS EXPERT, CORRUGATED FASTENER DRIVER
[2018-02-13 13:56] VITALS: BP 147/79; PULSE 70; RESP 18; TEMP 37.1; O2SAT 96
[2018-02-13 16:32] VITALS: PULSE 80
[2018-02-13] MEDS: Gabapentin 100 MG Capsule 200 MG PO (16:37)
[2018-02-13] MEDS: Tamsulosin HCl 0.4 MG Capsule PO (18:28)
[2018-02-13 20:00] VITALS: BP 157/73; PULSE 84; RESP 16; TEMP 37.1; O2SAT 96
[2018-02-14 02:00] VITALS: BP 150/77; PULSE 76; RESP 18; TEMP 36.9; O2SAT 96
[2018-02-14] MEDS: HYDROcodone Bitartrate/Apap 5/325 Tablet PO (06:40)
[2018-02-14 07:30] VITALS: BP 185/98; PULSE 98; RESP 16; TEMP 36.4; O2SAT 98
[2018-02-14] MEDS: Gabapentin 100 MG Capsule 200 MG PO (07:41)
[2018-02-14] MEDS: Magnesium Hydroxide 30 ML UDC PO (07:47)
--- NOTE | 2018-02-14 07:58 | PCM.PROGNOTE ---
Patient Problems: Active and Suspected Problems (Last Updated 02/08/18 @ 15:13 by Austin Dinero DO) Back pain (Acute) Subjective: The date of this progress note is 02/13/18: Patient was seen and examined today, his was in his room, he has reported minimal relief of his leg and back pain with muscle relaxants, nursing states that patient is sleepy at times from muscle relaxants. states that she is probably going to change his chronic pain management physician in the near future, patient and his were unable to tell me whether past epidural injections have helped the patient. Patient has significant degenerative joint disease in his lower lumbar spine with evidence of disc bulging. - Physical Exam General: Alert, Oriented x3, Cooperative, No apparent distress, Well developed HEENT: Atraumatic, PERRLA, EOMI, Normocephalic Oral: Moist Mucosa Neck: Supple, No JVD, No Nuchal Rigidity, Trachea Midline, Thyroid Normal Size and Texture Lungs: Clear to auscultation, Normal air movement, No rhonchi, No wheeze, No rales Cardiovascular: Regular rate, Regular Rhythm, Normal S1, Normal S2, No murmurs, No Ectopic Activity, PMI Normal, No rub noted, No Gallop Abdomen: Bowel Sounds Present, Soft, Non Tender, Non-Distended Extremities: No edema, Capillary Refill Less than 3 Seconds Skin: No rashes, No breakdown Neurological: Cranial nerves II-XII grossly intact, Neuro grossly intact, Sensory exam intact to light touch and pain, Coordination normal Psych/Mental Status: Normal Affect, Appropriate, Alert and oriented to time, place, person, mood and affect Vital Signs Temp Pulse Resp BP Pulse Ox 98.5 F 76 18 150/77 H 96 02/14/18 02:00 02/14/18 02:00 02/14/18 02:00 02/14/18 02:00 02/14/18 02:00 Oxygen Delivery Method Room Air Weight: 64.5 kg Body Mass Index (BMI) 21.0 Intake and Output for Last 24 Hours 02/12/18 02/13/18 02/14/18 23:59 23:59 23:59 Intake Total 3341 / 3341 2209 / 2209 500 / 500 Output Total 3670 / 3670 2100 / 2100 850 / 850 Balance -329 / -329 109 / 109 -350 / -350 Medical Necessity - Tobacco Use Smoking Status: Former smoker Tobacco Use: Pipe Assessment/Plan All Active Problems (Last Updated 02/08/18 @ 15:13 by Austin Dinero DO) Back pain (Acute) #1 acute on chronic lumbar and radicular lumbar pain secondary to significant 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 is in agreement with this treatment plan and so is the patient. 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
--- NOTE | 2018-02-14 08:04 | PN_ITS ---
Patient Problems: Active and Suspected Problems (Last Updated 02/08/18 @ 15:13 by Austin Dinero DO) Back pain (Acute) Subjective: The date of this progress note is 02/13/18: Patient was seen and examined today, his was in his room, he has reported minimal relief of his leg and back pain with muscle relaxants, nursing states that patient is sleepy at times from muscle relaxants. states that she is probably going to change his chronic pain management physician in the near future, patient and his were unable to tell me whether past epidural injections have helped the patient. Patient has significant degenerative joint disease in his lower lumbar spine with evidence of disc bulging. - Physical Exam General: Alert, Oriented x3, Cooperative, No apparent distress, Well developed HEENT: Atraumatic, PERRLA, EOMI, Normocephalic Oral: Moist Mucosa Neck: Supple, No JVD, No Nuchal Rigidity, Trachea Midline, Thyroid Normal Size and Texture Lungs: Clear to auscultation, Normal air movement, No rhonchi, No wheeze, No rales Cardiovascular: Regular rate, Regular Rhythm, Normal S1, Normal S2, No murmurs, No Ectopic Activity, PMI Normal, No rub noted, No Gallop Abdomen: Bowel Sounds Present, Soft, Non Tender, Non-Distended Extremities: No edema, Capillary Refill Less than 3 Seconds Skin: No rashes, No breakdown Neurological: Cranial nerves II-XII grossly intact, Neuro grossly intact, Sensory exam intact to light touch and pain, Coordination normal Psych/Mental Status: Normal Affect, Appropriate, Alert and oriented to time, place, person, mood and affect Vital Signs Temp Pulse Resp BP Pulse Ox 98.5 F 76 18 150/77 H 96 02/14/18 02:00 02/14/18 02:00 02/14/18 02:00 02/14/18 02:00 02/14/18 02:00 Oxygen Delivery Method Room Air Weight: 64.5 kg Body Mass Index (BMI) 21.0 Intake and Output for Last 24 Hours 02/12/18 02/13/18 02/14/18 23:59 23:59 23:59 Intake Total 3341 / 3341 2209 / 2209 500 / 500 Output Total 3670 / 3670 2100 / 2100 850 / 850 Balance -329 / -329 109 / 109 -350 / -350 Medical Necessity - Tobacco Use Smoking Status: Former smoker Tobacco Use: Pipe Assessment/Plan All Active Problems (Last Updated 02/08/18 @ 15:13 by Austin Dinero DO) Back pain (Acute) #1 acute on chronic lumbar and radicular lumbar pain secondary to significant 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 is in agreement with this treatment plan and so is the patient. 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
[2018-02-14] MEDS: Enoxaparin 40 MG/0.4 ML Syringe SC (10:30)
--- NOTE | 2018-02-14 11:44 | CASEMGMT ---
Social Work Note SW faxed updated clinicals to Josephine at [facility] Plan: [facility] pending pre-cert Nia Vigil QUALITY ASSURANCE QA LAB TECHNICIAN, RN RECOVERY
[2018-02-14] MEDS: 0.9% NaCl Peripheral Flush Adult/Peds IV ×3 (12:43→23:45)
[2018-02-14] MEDS: Gabapentin 300 MG Capsule PO ×2 (12:47→16:43)
--- NOTE | 2018-02-14 13:27 | CASEMGMT ---
Addendum entered by Nia Vigil 02/14/18 15:32: SKYLER spoke with physician who states pt is staying at [facility] today. SKYLER placed a call to Josephine at [facility] and left her a message informing her of this. Original Note: Social Work Note SW received message from Josephine at [facility] stating she has received pre-cert for pt. SKYLER updated physician. SKYLER spoke with Josephine at [facility] informing her that this worker is waiting to get confirmation from physician if pt will be discharged today. Josephine states understanding. Plan: Discharge to [facility] when medically cleared Nia Vigil PATIENT COORDINATOR FRONT DESK, MIRROR FINISHING MACHINE OPERATOR
[2018-02-14 16:00] VITALS: BP 147/55; PULSE 72; RESP 18; TEMP 36.3; O2SAT 99
[2018-02-14] MEDS: Magnesium Citrate 300 ML 150 ML PO (16:42)
[2018-02-14] MEDS: Tamsulosin HCl 0.4 MG Capsule PO (16:43)
[2018-02-14] MEDS: Fleet Enema 1 ML RECTAL (17:21)
--- NOTE | 2018-02-14 17:53 | PCM.PROGNOTE ---
Patient Problems: Active and Suspected Problems (Last Updated 02/08/18 @ 15:13 by Austin Dinero DO) Back pain (Acute) Subjective: Patient was seen and examined today, his is in the room, he rates his pain a 10 out of 10 today, patient is also having severe constipation, this afternoon I disimpacted him of a moderate amount of firm stool, he will get an oil retention enema today and mag citrate. I talked with pain management today and the plan is for the patient have an epidural injection tomorrow, he has been approved to go to a group home facility but I feel the patient needs to undergo the epidural injection to see if this is going to be successful in controlling his pain. I have increased the patient's Neurontin today and he remains on IV Decadron for now. Patient was made a full admission today. - Physical Exam General: Alert, Oriented x3, Cooperative, Well developed HEENT: Atraumatic, PERRLA, EOMI, Normocephalic Oral: Moist Mucosa Neck: Supple, Trachea Midline, Thyroid Normal Size and Texture Lungs: Clear to auscultation, Normal air movement, No rhonchi, No wheeze, No rales Cardiovascular: Regular rate, Regular Rhythm, Normal S1, Normal S2, No murmurs, No Ectopic Activity, PMI Normal, No rub noted, No Gallop Abdomen: Bowel Sounds Present, Soft, Non Tender, Non-Distended Extremities: No edema, Capillary Refill Less than 3 Seconds Skin: No rashes, No breakdown Musculoskeletal: No Tenderness to Palpation of Joints or Extremities Neurological: Cranial nerves II-XII grossly intact, Neuro grossly intact, Sensory exam intact to light touch and pain, Coordination normal Psych/Mental Status: Normal Affect, Appropriate, Alert and oriented to time, place, person, mood and affect Vital Signs Temp Pulse Resp BP Pulse Ox 97.6 F L 98 16 185/98 H 98 02/14/18 07:30 02/14/18 07:30 02/14/18 07:30 02/14/18 07:30 02/14/18 07:30 Oxygen Delivery Method Room Air Weight: 64.5 kg Body Mass Index (BMI) 21.0 Intake and Output for Last 24 Hours 02/12/18 02/13/18 02/14/18 23:59 23:59 23:59 Intake Total 3341 / 3341 2209 / 2209 750 / 750 Output Total 3670 / 3670 2099 / 2100 850 / 850 Balance -329 / -329 109 / 109 -100 / -100 Medical Necessity - Tobacco Use Smoking Status: Former smoker Tobacco Use: Pipe Assessment/Plan All Active Problems (Last Updated 02/08/18 @ 15:13 by Austin Dinero DO) Back pain (Acute) #1 acute on chronic lumbar and radicular lumbar pain secondary to significant degenerative disc disease of lumbar spine with foraminal stenosis and disc bulging-patient will be seen by pain management and undergo an epidural injection tomorrow, continue PT OT, continue Neurontin, continue IV Decadron for now and current narcotic pain medication #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
[2018-02-14 21:32] VITALS: BP 149/85; PULSE 99; RESP 20; TEMP 36.8; O2SAT 95
[2018-02-15] VITALS (10 sets, daily range): BP systolic 144–166; BP diastolic 73–97; PULSE 61–100; RESP 16–20; TEMP 36.3–37.1; O2SAT 95–98; BMI 21.0
[2018-02-15] MEDS: 0.9% NaCl Peripheral Flush Adult/Peds IV ×4 (05:51→23:52)
--- NOTE | 2018-02-15 06:00 | EKG12_ITS ---
Test Reason : AM EKG Blood Pressure : / mmHG Vent. Rate : 083 BPM Atrial Rate : 083 BPM P-R Int : 152 ms QRS Dur : 082 ms QT Int : 366 ms P-R-T Axes : 059 -12 009 degrees QTc Int : 430 ms Normal sinus rhythm Normal ECG Confirmed by KAREN HDEZ, MOLLY ([id number]), commercial production editor ERNIE MARCUS ([id number]) on 02/16/2018 2:28:06 PM Referred By: Austin Dinero Confirmed By:MOLLY JONES MD
[2018-02-15] MEDS: Gabapentin 300 MG Capsule PO ×2 (08:24→16:46)
--- NOTE | 2018-02-15 09:58 | RAD_ITS ---
STUDY: X-RAY - LUMBAR SPINE REASON FOR EXAM: Male, 72 years old. Spinal block. TECHNIQUE: A single fluoroscopic spot view of the lumbar spine was obtained. FLUOROSCOPY TIME: Information was not provided. COMPARISON: None FINDINGS: Fluoroscopic image was submitted, as radiology support for c-arm imaging in the operating room. This is not a diagnostic examination. Image is for documentation purposes only. RAD/OR-Steroi/Epid Inj/Lum Sac/1st IMPRESSION: As above. Electronically Signed: Nando Sterling MD at 3:51 EDT , Service support ,
--- NOTE | 2018-02-15 14:28 | CASEMGMT ---
COLTON CM NOTE: Per [facility] Provider Directory Website, the following tertiary care centers are in-network: [facility], [facility], [facility], [facility], [facility], [facility], , [facility]. Phone call also placed to [facility] re: [facility] and confirmation received that [facility] is NOT in network.
--- NOTE | 2018-02-15 14:30 | NURSING ---
report called to Lina in [place]. pt transported down by DEEPIKA Silverio
[2018-02-15] MEDS: Triamcinolone Acetonide 40 MG/ML Vial (15:51)
[2018-02-15] MEDS: Tamsulosin HCl 0.4 MG Capsule PO (16:46)
--- NOTE | 2018-02-15 19:03 | NURSING ---
reviewed and agree with charting by Yajaira Cárdenas, student nurse
--- NOTE | 2018-02-15 19:03 | PCM.PROGNOTE ---
Patient Problems: Active and Suspected Problems (Last Updated 02/08/18 @ 15:13 by Austin Dinero DO) Back pain (Acute) Subjective: Patient seen and examined today, he underwent an epidural injection today and he states that his back pain and leg pain is much better. Patient would like to go home tomorrow if possible. His is in the room and his son and I talked with both of them also. - Physical Exam General: Alert, Oriented x3, Cooperative, No apparent distress, Well developed, Well nourished HEENT: Atraumatic, PERRLA, EOMI, Normocephalic Oral: Moist Mucosa Neck: Supple, Trachea Midline, Thyroid Normal Size and Texture Lungs: Clear to auscultation, Normal air movement, No rhonchi, No wheeze, No rales Cardiovascular: Regular rate, Regular Rhythm, Normal S1, Normal S2, No murmurs, No Ectopic Activity, PMI Normal, No rub noted, No Gallop Abdomen: Bowel Sounds Present, Soft, Non Tender, Non-Distended Extremities: No clubbing, No cyanosis, No edema, Capillary Refill Less than 3 Seconds Skin: No rashes, No breakdown Neurological: Cranial nerves II-XII grossly intact, Neuro grossly intact, Coordination normal Psych/Mental Status: Normal Affect, Appropriate, Alert and oriented to time, place, person, mood and affect Vital Signs Temp Pulse Resp BP Pulse Ox 97.3 F L 61 16 166/91 H 98 02/15/18 16:38 02/15/18 16:38 02/15/18 16:38 02/15/18 16:38 02/15/18 16:38 Oxygen Delivery Method Room Air Weight: 64.5 kg Body Mass Index (BMI) 21.0 Intake and Output for Last 24 Hours 02/13/18 02/14/18 02/15/18 23:59 23:59 23:59 Intake Total 2209 / 2209 1050 / 1050 870 / 870 Output Total 2099 / 2099 850 / 850 Balance 109 / 109 200 / 200 870 / 870 Medical Necessity - Tobacco Use Smoking Status: Former smoker Tobacco Use: Pipe Assessment/Plan All Active Problems (Last Updated 02/08/18 @ 15:13 by Austin Dinero DO) Back pain (Acute) #1 acute on chronic lumbar and radicular lumbar pain secondary to significant degenerative disc disease of lumbar spine with foraminal stenosis and disc bulging-I will discontinue his Decadron for now, he remains on gabapentin, PT and OT will see him tomorrow to see if he is able to be discharged home versus go to an extended care facility. 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
[2018-02-16 04:00] VITALS: BP 157/77; PULSE 65; RESP 16; TEMP 36.7; O2SAT 97
[2018-02-16 07:30] VITALS: BP 165/89; PULSE 65; RESP 18; TEMP 36.8; O2SAT 98
[2018-02-16] MEDS: Gabapentin 300 MG Capsule PO ×2 (07:46→12:15)
--- NOTE | 2018-02-16 10:19 | CASEMGMT ---
COLTON KU Note: DC PLAN: Home with [facility] for PT. COLTON KU spoke with pt and re: dc planning. Pt feels he is able to return home. Family has moved his second floor bedroom to first floor set up. Pt has walker from [employer] and family will provide assist and transportation. [facility] choices given, pt and are agreeable to [facility] -call to Renee @ [facility]. They are able to accept pt for PT @ Home and will start Tuesday, 02.20.18. COLTON KU updated family. Stacy VELAN RN ACM
[2018-02-16] MEDS: Enoxaparin 40 MG/0.4 ML Syringe SC (10:36)
--- NOTE | 2018-02-16 11:58 | CASEMGMT ---
SW spoke w/OT, pt walked a full loop and is okay to go home. SW let physician and CM know, SW also let Josephine at [facility] know via voicemail that pt is able to go home. AUSTIN Cartagena, MACHINE SKIVER
--- NOTE | 2018-02-16 12:09 | PCM.DC ---
- Discharge Diagnoses Current Active Problems: Current Active and Chronic Problems (Last Updated 02/08/18 @ 15:13 by Austin Dinero DO) Back pain (Acute) You will use the following diet at home:: No restrictions Your food should be the consistency of: Regular Your liquids should be the consistency of: Regular/Thin Discharge Activity: Use Walker - as needed Weight Bearing Status: Weight bearing as tolerated Allergies/Adverse Reactions: Allergies No Known Allergies Allergy (Verified 02/08/18 13:03) Medications to take at Discharge Hydrocodone/Acetaminophen [Hydrocodone-Acetamin 5-325 mg] 1 tab PO Q6H PRN PRN 02/08/18 Acetaminophen [Tylenol Tablet] 650 mg PO Q6H PRN PRN tablet 02/16/18 Gabapentin [Neurontin] 300 mg PO TIDCM #90 capsule 02/16/18 Hydrocodone Bitart/Apap 5-325 [[place] 5/325] 1 tablet PO Q6H PRN PRN 7 Days #1 tablet 02/16/18 The following prescriptions were given: Gabapentin [Neurontin] 300 mg PO TIDCM #90 capsule Primary Care Physician: Varinder Pappas [Primary Care Provider] - Please follow up with your Primary Care Physician in: in 3-5 days Test Results: Test results from this visit will be discussed in further detail at your follow-up appointment, if applicable. Please Follow Up With: your pain management When: in 2-3 weeks
--- NOTE | 2018-02-16 12:14 | DCINST_ITS ---
- Discharge Diagnoses Current Active Problems: Current Active and Chronic Problems (Last Updated 02/08/18 @ 15:13 by Austin Dinero DO) Back pain (Acute) You will use the following diet at home:: No restrictions Your food should be the consistency of: Regular Your liquids should be the consistency of: Regular/Thin Discharge Activity: Use Walker - as needed Weight Bearing Status: Weight bearing as tolerated Allergies/Adverse Reactions: Allergies No Known Allergies Allergy (Verified 02/08/18 13:03) Medications to take at Discharge Hydrocodone/Acetaminophen [Hydrocodone-Acetamin 5-325 mg] 1 tab PO Q6H PRN PRN 02/08/18 Acetaminophen [Tylenol Tablet] 650 mg PO Q6H PRN PRN tablet 02/16/18 Gabapentin [Neurontin] 300 mg PO TIDCM #90 capsule 02/16/18 Hydrocodone Bitart/Apap 5-325 [[place] 5/325] 1 tablet PO Q6H PRN PRN 7 Days #1 tablet 02/16/18 The following prescriptions were given: Gabapentin [Neurontin] 300 mg PO TIDCM #90 capsule Primary Care Physician: Varinder Pappas [Primary Care Provider] - Please follow up with your Primary Care Physician in: in 3-5 days Test Results: Test results from this visit will be discussed in further detail at your follow- up appointment, if applicable. Please Follow Up With: your pain management When: in 2-3 weeks
[2018-02-16 12:46] VITALS: BP 158/70; PULSE 74; RESP 18; TEMP 37; O2SAT 98
--- NOTE | 2018-02-16 13:11 | CHAPLAIN ---
Type of Pastoral Visit ___ Initial Visit _x__ Follow-up Visit ___ On-call Visit ___ General Patient Visit ___ Spiritual Assessment ___ Family Conference ___ Bereavement ___ Rapid Response ___ Code Blue ___ Other (describe below) Pastoral Care Referral From _x__ Patient ___ Family ___ Nurse ___ Physician ___ Data Sme ___ Decorating Kiln Operator ___ Other (describe below) Sacrament/Intervention _x__ Active listening ___ Anointing ___ Shinto ___ Bereavement ___ Communion ___ Selin exploration ___ ___ Life review ___ Prayer ___ Reconciliation ___ Sacrament of Sick ___ Supportive presence ___ Wedding ___ Other (describe below) Pastoral Comments patient reports that he is feeling 100% better than when he came to hospital; pt is eating lunch and says he is planning to go home; spouse is with pt
--- NOTE | 2018-02-16 17:17 | PCM.DC.SUM ---
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 Patient has a history of chronic back pain and is been seen . Workup in the emergency room included a CBC which was unremarkable, chemistries were unremarkable, CT of the flank was obtained which showed small stones of both kidneys but otherwise nothing acute. Patient was given IV Dilaudid in the emergency room and IV Zofran, he continued to have low back pain and was unable to be discharged home. Patient was admitted to [place] [address], he was given muscle relaxants and pain medications without significant relief. MRI of the lumbar spine showed multilevel degenerative disease with severe foraminal stenosis on the right at L4-L5 and bilaterally at L5-S1. Patient was given IV Decadron and was placed on gabapentin and his muscle relaxants were stopped. Patient became constipated and had a fecal impaction which had to be manually removed and he was given laxatives with good result. Patient was seen in consultation by pain management and on 02/15/18 and epidural injection was performed at the level of L1-L2 with good result. Patient was able to ambulate with more stability on 02/15/18 and 02/16/18 and although plans were made for the patient to be admitted to an extended care facility for inpatient rehab, patient did not feel he needed to go to a [facility] facility and he was discharged home on 02/16/18 with no objection from his . Physical exam: On examination he appeared in good health and spirits. Vital signs as documented. Skin warm and dry and without overt rashes. Neck without JVD. Lungs clear. Heart exam notable for regular rhythm, normal sounds and absence of murmurs, rubs or gallops. Abdomen unremarkable and without evidence of organomegaly, masses, or abdominal aortic enlargement. Extremities nonedematous. Neuro: Cranial nerves II through XII are grossly intact, sensation to light touch and pinprick were intact, no focal motor deficits were noted. Psych: Patient was alert and oriented x3 and was appropriate. Musculoskeletal: There is decreased range of motion to flexion in the lumbar spine due to pain, patient had good stability on walking, there is no tenderness of any joints noted to be present. - Physical Exam Vital Signs Temp Pulse Resp BP Pulse Ox 98.6 F 74 18 158/70 H 98 02/16/18 12:46 02/16/18 12:46 02/16/18 12:46 02/16/18 12:46 02/16/18 12:46 Oxygen Delivery Method Room Air Weight: 64.5 kg Body Mass Index (BMI) 21.0 Intake and Output for Last 24 Hours 02/14/18 02/15/18 02/16/18 23:59 23:59 23:59 Intake Total 1050 / 1050 1270 / 1270 1150 / 1150 Output Total 850 / 850 Balance 200 / 200 1270 / 1270 1150 / 1150 Discharge Activity: Use Walker - as needed Weight Bearing Status: Weight bearing as tolerated Call your doctor if you observe: Numbness or Tingling, Inability to urinate, Inability to have a bowel movement Home Medications: Medications to take at Discharge Hydrocodone/Acetaminophen [Hydrocodone-Acetamin 5-325 mg] 1 tab PO Q6H PRN PRN 02/08/18 Acetaminophen [Tylenol Tablet] 650 mg PO Q6H PRN PRN tablet 02/16/18 Gabapentin [Neurontin] 300 mg PO TIDCM #90 capsule 02/16/18 Hydrocodone Bitart/Apap 5-325 [[place] 5/325] 1 tablet PO Q6H PRN PRN 7 Days #1 tablet 02/16/18 Following Prescrptions Were Given to Patient: Gabapentin [Neurontin] 300 mg PO TIDCM #90 capsule Primary Care Physician: Varinder Pappas [Primary Care Provider] - Please follow up with your Primary Care Physician in: in 3-5 days Please Follow Up With: your pain management When: in 2-3 weeks Disposition: Home Minutes spent on discharge:: 32 Patient Condition:: Stable Medical Necessity - Tobacco Use Smoking Status: Former smoker Tobacco Use: Pipe Meaningful Use Info Meaningful Use Diagnoses (Choose all that apply): None applicable Code Visit Inpatient E&M: 93380 Disch Hosp
--- NOTE | 2018-02-16 17:39 | DS.PCM_ITS ---
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 Patient has a history of chronic back pain and is been seen . Workup in the emergency room included a CBC which was unremarkable, chemistries were unremarkable, CT of the flank was obtained which showed small stones of both kidneys but otherwise nothing acute. Patient was given IV Dilaudid in the emergency room and IV Zofran, he continued to have low back pain and was unable to be discharged home. Patient was admitted to [place] [address], he was given muscle relaxants and pain medications without significant relief. MRI of the lumbar spine showed multilevel degenerative disease with severe foraminal stenosis on the right at L4-L5 and bilaterally at L5-S1. Patient was given IV Decadron and was placed on gabapentin and his muscle relaxants were stopped. Patient became constipated and had a fecal impaction which had to be manually removed and he was given laxatives with good result. Patient was seen in consultation by pain management and on 02/15/18 and epidural injection was performed at the level of L1-L2 with good result. Patient was able to ambulate with more stability on 02/15/18 and 02/16/18 and although plans were made for the patient to be admitted to an extended care facility for inpatient rehab, patient did not feel he needed to go to a nursing home facility and he was discharged home on 02/16/18 with no objection from his . Physical exam: On examination he appeared in good health and spirits. Vital signs as documented. Skin warm and dry and without overt rashes. Neck without JVD. Lungs clear. Heart exam notable for regular rhythm, normal sounds and absence of murmurs, rubs or gallops. Abdomen unremarkable and without evidence of organomegaly, masses, or abdominal aortic enlargement. Extremities nonedematous. Neuro: Cranial nerves II through XII are grossly intact, sensation to light t ouch and pinprick were intact, no focal motor deficits were noted. Psych: Patient was alert and oriented x3 and was appropriate. Musculoskeletal: There is decreased range of motion to flexion in the lumbar spine due to pain, patient had good stability on walking, there is no tenderness of any joints noted to be present. - Physical Exam Vital Signs Temp Pulse Resp BP Pulse Ox 98.6 F 74 18 158/70 H 98 02/16/18 12:46 02/16/18 12:46 02/16/18 12:46 02/16/18 12:46 02/16/18 12:46 Oxygen Delivery Method Room Air Weight: 64.5 kg Body Mass Index (BMI) 21.0 Intake and Output for Last 24 Hours 02/14/18 02/15/18 02/16/18 23:59 23:59 23:59 Intake Total 1050 / 1050 1270 / 1270 1150 / 1150 Output Total 850 / 850 Balance 200 / 200 1270 / 1270 1150 / 1150 Discharge Activity: Use Walker - as needed Weight Bearing Status: Weight bearing as tolerated Call your doctor if you observe: Numbness or Tingling, Inability to urinate, Inability to have a bowel movement Home Medications: Medications to take at Discharge Hydrocodone/Acetaminophen [Hydrocodone-Acetamin 5-325 mg] 1 tab PO Q6H PRN PRN 02/08/18 Acetaminophen [Tylenol Tablet] 650 mg PO Q6H PRN PRN tablet 02/16/18 Gabapentin [Neurontin] 300 mg PO TIDCM #90 capsule 02/16/18 Hydrocodone Bitart/Apap 5-325 [Arbuckle 5/325] 1 tablet PO Q6H PRN PRN 7 Days #1 tablet 02/16/18 Following Prescrptions Were Given to Patient: Gabapentin [Neurontin] 300 mg PO TIDCM #90 capsule Primary Care Physician: Varinder Pappas [Primary Care Provider] - Please follow up with your Primary Care Physician in: in 3-5 days Please Follow Up With: your pain management When: in 2-3 weeks Disposition: Home Minutes spent on discharge:: 32 Patient Condition:: Stable Medical Necessity - Tobacco Use Smoking Status: Former smoker Tobacco Use: Pipe Meaningful Use Info Meaningful Use Diagnoses (Choose all that apply): None applicable Code Visit Inpatient E&M: 55069 Disch Hosp
== END 2018-02-16 13:30 | disposition home health service (06) | DRG 552 ==
LOC: ED 13:39 → MS2 15:16
PROVIDERS: Anesthesiology Pain Medicine; Family Medicine; Emergency Provider Emergency Medicine; Family Provider Family Medicine; PCP Family Medicine; Visit Provider Internal Medicine
PROC: 3E0S3BZ Introduction of Anesthetic Agent into Epidural Space, Percutaneous Approach (ICD-10-PCS; CPT 62322; principal; 2018-02-15 09:15)
DX: M51.16 Intervertebral disc disorders with radiculopathy, lumbar region (principal); M48.061 Spinal stenosis, lumbar region without neurogenic claudication; G89.29 Other chronic pain; M47.896 Other spondylosis, lumbar region; N20.0 Calculus of kidney; N40.0 Benign prostatic hyperplasia without lower urinary tract symptoms; K56.41 Fecal impaction; R53.81 Other malaise; Z23 Encounter for immunization
CPT/HCPCS: 36415; 64483; 72148; 74176; 76000; 80048; 81001; 85025; 93005; 97110; 97162; 97166; 97530; 97535; 99284; G0008; J7030; J7040; 90686; A4216; J2405

== ENCOUNTER → 2023-05-24 | Outpatient (CLI) | payer MEDICARE, SELFPAY ==
--- OUTSIDE RECORDS SUMMARY | 2023-05-24 09:26 | XMS RPT_ITS | CCD ---
Author Name Unknown Address [address] [place] [address] Organization [facility] Care Team Providers Care Straight Cutter Machine Name Role Phone Jalyn Cathy M Unavailable Poly Dominique Unavailable PRINCE MARCUS Admitting Unavailable PRINCE MARCUS Primary Care Unavailable PRINCE MARCUS Attending Unavailable LATOUCHELLE De Santiago MD Consulting Unavailable PROVIDER, UNKNOWN Consulting Unavailable PROVIDER, UNKNOWN Consulting Unavailable PROVIDER, UNKNOWN Consulting Unavailable LATOUCHELLE De Santiago MD Attending Unavailable LATOUFCHELLE MD Admitting Unavailable LATOUFCHELLE MD Primary Care Unavailable LATOUFCHELLE MD Consulting Unavailable PROVIDER, UNKNOWN Consulting Unavailable PROVIDER, UNKNOWN Consulting Unavailable PROVIDER, UNKNOWN Consulting Unavailable LATOUF, CHELLE HDEZ Consulting Unavailable LATOUF, CHELLE HDEZ Attending Unavailable LATOUF, CHELLE HDEZ Admitting Unavailable LATOUAnyi, CHELLE HDEZ Primary Care Unavailable PROVIDER, UNKNOWN Consulting Unavailable PROVIDER, UNKNOWN Consulting Unavailable PROVIDER, UNKNOWN Consulting Unavailable Problems Active Problems Problem Classification Problem Date Documented Da te Episodic/Chronic Coagulation and hemorrhagic disorders (1 source) Thrombocytopenia, unspecified; Translations: [Thrombocytopenia , unspecified] Onset: 08-10-2022 Chronic Disorders of lipid metabolism (1 source) Pure hypercholesterole stacy, unspecified; Translations: [Pure hypercholesterole stacy, unspecified] Onset: 12-20-2022 Chronic Essential hypertension (1 source) Essential (primary) hypertension; Translations: [Essential (primary) hypertension] Onset: 12-20-2022 Chronic Other screening for suspected conditions (not mental disorders or infectious disease) (2 sources) Other specified abnormal findings of blood chemistry; Translations: [Encounter for screening for malignant neoplasm of prostate] Onset: 08-10-2022 Episodic Past or Other Problems Problem Classification Problem Date Documented Da te Episodic/Chronic Spondylosis; intervertebral disc disorders; other back problems (2 sources) Low back pain; Translations: [Low back pain] Onset: 03-01-2017 03-01-2017 Episodic Results Test Name Value Interpretation Reference Range Facil ity Vital Signs Date Time Vital Sign Value Performing Clinician Vernoica joe 03-01-2017 15:32-0400 BMI (Body Mass Index) 21.12 kg/m2 [facility] Work Phone: 03-01-2017 15:32-0400 Height 175.26 cm [facility] Work Phone: 03-01-2017 15:32-0400 Weight 64.86 kg [facility] Work Phone: Encounters Encounter Date Encounter Type Care Provider Facility Start: 02-23-2023 End: 02-23-2023 ambulatory PRINCE MARCUS [facility] Start: 12-20-2022 ambulatory CHELLE HDEZ [facility] Start: 08-10-2022 End: 08-10-2022 ambulatory CHELLE HDEZ [facility] Procedures Date Procedure Procedure Detail Performing Clinician Start: 08-10-2022 PSA screening [facility] Plan of Treatment Date Care Activity Detail Author Start: 05-17-2017 End: 05-17-2017 Appointment Appointment [facility] Work Phone: Start: 03-02-2017 End: 03-02-2017 Physical Therapy General Physical Therapy General Rehab [facility], [address] [place] [address], [facility] Work Phone: Start: 03-01-2017 End: 03-01-2017 Radex spine lumbscrl compl w/bending views min 6 X-Ray, Spine, Lumbar, complete with bending views [facility] Work Phone: Payers Date Payer Category Payer Medicare [id number] 1945 Unknown [id number] 1945 Unknown [id number] 1945 Unknown [id number] Summary Purpose Family History No Family History Records FoundNo Family History Records Found Advance Directives No Advanced Directives Records FoundNo Advanced Directives Records Found Additional Source Comments (unrecognized sect ion and content) No Status Records FoundNo Status Records Found INFORMATION SOURCE (unrecogn ized section and content) DATE CREATED AUTHOR AUTHOR'S ORGANIZ ATION 02/26/2023 Formerly [facility] ([place] FOR RECORDS PERTAINING TO PATIENTS WHO ARE OR HAVE BEEN ENROLLED IN A CHEMICAL DEPENDENCY/SUBSTANCEABUSE PROGRAM, SOME INFORMATION MAY BE OMITTED. This clinical summary was aggregated from multiple sources. Caution should be exercised in using it in the provision of clinical care. This summary normalizes information from multiple sources, and as a consequence, information in this document may materially change the coding, format and clinical context of patient data. In addition, data may be omitted in some cases. CLINICAL DECISIONS SHOULD BE BASED ON THE PRIMARY CLINICAL RECORDS. [facility]. provides no warranty or guarantee of the accuracy or completeness of information in this document.
[2023-05-24 10:03] LABS: Hematocrit 47.8 % (40-54); Hemoglobin 16.4 g/dL (13.0-16.5); Mean Corp Hgb Conc 34.3 g/dL (32-36); Mean Corpuscular Volume 90.4 fL (80-94); POSITIVE COUNT YES; RBC Distribution Width CV 12.1 % (11.6-14.6); RBC Distribution Width SD 39.8 fl (35.1-43.9); Red Blood Count 5.29 M/mm3 (4.6-6.2); White Blood Count 5.4 K/mm3 (4.4-11.0)
[2023-05-24 10:40] LABS: Vitamin B12 523 pg/mL (211-911)
[2023-05-24 10:58] LABS: ALB/GLOB Ratio 1.3 RATIO (0.9-2.4); AST(SGOT) 21 U/L (15-37); Alanine Aminotransfer ALT/SGPT 33 U/L (16-61); Albumin, Serum 4.1 g/dL (3.2-5.0); Alkaline Phosphatase 88 U/L (45-117); Anion Gap 6 (5-15); BUN 21 mg/dL (7-18); BUN/Creat Ratio 21.6 RATIO (10-20); Calcium,Total 9.9 mg/dL (8.5-10.1); Chloride 107 mmol/L (98-107); Creatinine, Serum 0.97 mg/dL (0.70-1.30); EST Glomerular Filtration Rate 79 mL/min (>60); Est Glom Filt Rate - Afr Amer 96 mL/min (>60); Globulin 3.2 g/dL (2.2-4.2); Glucose 128 mg/dL (74-106); Magnesium 2.2 mg/dL (1.6-2.6); Potassium 4.3 mmol/L (3.5-5.1); Protein, Total 7.3 g/dL (6.4-8.2); Sodium Level 139 mmol/L (136-145); Thyroid Stim Hormone (TSH) 2.73 uIU/mL (0.358-3.74)
[2023-05-24 11:07] LABS: Scan Indicated on CBC? Y/N YES- FLAGS NOTED
[2023-05-24 11:08] LABS: Differential Comment SCANNED
[2023-05-25 12:08] LABS: ANTINUCLEAR ANTIBODIES DIRECT Negative (Negative)
[2023-05-27 00:07] LABS: Free Kappa Light Chains 19.3 mg/L (3.3-19.4); Free Lambda Light Chains 11.5 mg/L (5.7-26.3); Vitamin B1, Thiamine 136.4 nmol/L (66.5-200.0)
== END | disposition home or self-care (01) ==
LOC: MTLAB 08:59
PROVIDERS: PCP Internal Medicine; Referring Provider Psychiatry & Neurology Neurology; Visit Provider Psychiatry & Neurology Neurology
DX: G62.9 Polyneuropathy, unspecified (principal); I10 Essential (primary) hypertension
CPT/HCPCS: 36415; 80053; 82607; 82746; 83735; 83883; 84425; 84443; 85027; 86038; 86225; 86235

== ENCOUNTER → 2023-07-13 | Outpatient (CLI) | payer MEDICARE, SELFPAY ==
--- OUTSIDE RECORDS SUMMARY | 2023-07-13 12:41 | XMS RPT_ITS | CCD ---
Author Name Unknown Address [address] [place] [id number] Organization [facility] Care Team Providers Care Earth Burner Name Role Phone Cathy Gunderson Catracho Unavailable Poly Dominique Unavailable PRINCE MARCUS Admitting Unavailable PRINCE MARCUS Primary Care Unavailable PRINCE MARCUS Attending Unavailable CHELLE VILLELA MD Consulting Unavailable PROVIDER, UNKNOWN Consulting Unavailable PROVIDER, UNKNOWN Consulting Unavailable PROVIDER, UNKNOWN Consulting Unavailable LATCHELLE MATHEW MD Attending Unavailable LATOUCHELLE De Santiago MD Admitting Unavailable CHELLE VILLELA MD Primary Care Unavailable LATOUCHELLE De Santiago MD Consulting Unavailable PROVIDER, UNKNOWN Consulting Unavailable PROVIDER, UNKNOWN Consulting Unavailable PROVIDER, UNKNOWN Consulting Unavailable LATOUCHELLE De Santiago MD Consulting Unavailable LATOUCHELLE De Santiago MD Attending Unavailable LATOUCHELLE De Santiago MD Admitting Unavailable CHELLE VILLELA MD Primary Care Unavailable PROVIDER, UNKNOWN Consulting Unavailable PROVIDER, UNKNOWN Consulting Unavailable PROVIDER, UNKNOWN Consulting Unavailable Chelle Villela MD Primary Care Provider Varinder Pappas MD Unavailable [facility] Unavailable [phone] Rosy HDEZ, Dr. David Cage Unavailable Physical Therapy, William Schroeder Unavailable Eric HDEZ, Dr. Lucas ([facility]) A Unavail able Dr. Niles Rivas MD Unavailable [phone] Kendal Segovia MD Unavailable Karissa Diaz LPN Unavailable Brisa Crump LPN Unavailable Unavailable Rito Urbano MD Unavailable Wes WHEAT Renee Unavailable Unavailable Meenu SEGURA, Renetta Tavarez Unavailable Unavaila nasrin Umaña PA-C, Sissy Ramirez Unavailable [phone] Nickmarysol [employer], Patsy Santiago Unavailable Unavailab le Bertrand [employer], Kendal Hayden Unavailable Unavailab le Nati [employer], Regla Mattson Unavailable Unavailab le Wengerd [employer], Elva Unavailable Unavailabl amairani Flores [employer], Mayda Baca Unavailable Unavaila ble Zaugg [employer]PER[employer], Poly Unavailable Unavailable Unavailable Unavailable Medications Current Medications Medication Drug Class(es) Dates Sig (Normalized) Sig (Original) [id number] 200 actuat albuterol 0.09 mg/actuat metered dose inhaler (1 source) beta2-Adrenergic Agonist Start: 10-19-2018 take 2 puff(s) by inhalation every four to six hours as needed ProAir HFA 108 (90 Base) MCG/ACT Inhalation Aerosol Solution ; 2 (two) Puff Puff every 4-6 hours as needed for 0 days Quantity: 1 {Inhaler} Refills: 0 Ordered: 19-Oct-2018 JARRET Harvey Start: 19-Oct-2018 Comments: Medication taken as needed. Ok to sub with ventolin if cheaper. Completed/Discontinued Medications Medication Drug Class(es) Dates Sig (Normalized) Sig (Original) 8 hr acetaminophen 650 mg extended release oral tablet (1 source) take 1 mg by mouth every six hours as needed Acetaminophen ER 650 MG Oral Tablet Extended Release ; every six hours, as needed (650 MG) Status: Inactive Comments: Medication taken as needed. Problems Active Problems Problem Classification Problem Date Documented Date Episodic/Chronic Abdominal pain (1 source) Abdominal pain, unspecified site 12-16-2012 Episodic Acute bronchitis (2 sources) Acute bronchitis; Translations: [Acute bronchitis, unspecified] 12-06-2011 Episodic Administrative/socia l admission (4 sources) Issue of repeat prescriptions 09-04-2014 Episodic Chronic obstructive pulmonary disease and bronchiectasis (2 sources) Bronchitis; Translations: [Bronchitis, not specified as acute or chronic] 12-15-2018 Episodic Coagulation and hemorrhagic disorders (1 source) Thrombocytopenia, unspecified; Translations: [Thrombocytopenia, unspecified] Onset: 08-10-2022 Chronic Conditions associated with dizziness or vertigo (4 sources) Vertigo; Translations: [Dizziness and giddiness] 08-16-2018 Episodic Disorders of lipid metabolism (1 source) Pure hypercholesterolemia, unspecified; Translations: [Pure hypercholesterolemia, unspecified] Onset: 12-20-2022 Chronic Diverticulosis and diverticulitis (2 sources) Diverticulitis; Translations: [Diverticulitis of intestine, part unspecified, without perforation or abscess without bleeding] 12-15-2018 Chronic Esophageal disorders (3 sources) Gastroesophageal reflux disease; Translations: [Gastro-esophageal reflux disease without esophagitis] 12-15-2018 Chronic Essential hypertension (4 sources) Essential (primary) hypertension; Translations: [Hypertensive disorder] Onset: 12-20-2022 12-15-2018 Chronic Immunizations and screening for infectious disease (9 sources) Suspected disease caused by 2019-nCoV; Translations: [Suspected COVID-19 virus infection] 05-28-2023 Episodic Inflammation; infection of eye (except that caused by tuberculosis or sexually transmitteddisease) (2 sources) Conjunctivitis; Translations: [Unspecified conjunctivitis] 07-30-2017 Episodic Influenza (2 sources) Influenza; Translations: [Influenza due to unidentified influenza virus with other respiratory manifestations] 05-20-2012 Episodic Mood disorders (2 sources) Depressive disorder; Translations: [Depressive disorder, not elsewhere classified] 12-15-2018 Chronic Mycoses (2 sources) Tinea pedis; Translations: [Tinea pedis] 12-15-2018 Episodic Other lower respiratory disease (3 sources) Cough; Translations: [Cough] 12-15-2018 Episodic Other non-traumatic joint disorders (3 sources) Pain in left shoulder; Translations: [Pain in joint, shoulder region] 08-16-2018 Episodic Other screening for suspected conditions (not mental disorders or infectious disease) (10 sources) Other specified abnormal findings of blood chemistry; Translations: [Encounter for screening for malignant neoplasm of prostate] Onset: 08-10-2022 07-06-2016 Episodic Residual codes; unclassified (2 sources) Body mass index 20-24 - normal; Translations: [Body mass index (BMI) 23.0-23.9, adult] 08-16-2018 Episodic Spondylosis; intervertebral disc disorders; other back problems (11 sources) Low back pain; Translations: [Lumbago] Onset: 03-01-2017 03-01-2017 Episodic Unclassified (1 source) Follow up rehab - Had back surgery April 11 and was in rehab until May 01. Continues with in home physical therapy. Back pain has been improved but complains of burning pain in left hip which radiates down leg. Has MRI scheduled 05-29-18. reviewed by [facility] 05-23-2018 Unclassified (1 source) Follow up consultation - The patient is here to follow-up after hospitalization ([facility] with acute chronic lumbar and radicular lumbar pain.) on : (02-08-18 to 02-16-18). Note for Consultation follow-up : Had an epidural back injection while in the hospital which helped the pain a little. Is using a walker while ambulating. Complains of chest pain when eating or drinking. reviewed by [facility] 02-21-2018 Unclassified (1 source) [ADDITIONAL REASON] Transition into care - The patient is transitioning into care from a hospital and a summary of care was reviewed. 02-21-2018 Unclassified (1 source) Eye Symptoms - The onset of the eye symptoms has been acute and has been occurring in an increasing pattern for 1 week. The course has been increasing. The eye symptoms are described as moderate and involve both eyes. The symptoms are described as pain, itching and drainage. Note for Eye symptoms : reviewed by [facility] 07-30-2017 Unclassified (1 source) Back pain - The onset of the back pain has been acute and has been occurring in a persistent pattern for years. The course has been increasing (worse at night). The pain is characterized as a dull ache and stabbing. The pain is located in the lower back and does not radiate. There are no precipitating factors. Note for Back pain : Has been going to chiropractor with no relief. MRI in October showed diffuse DJD and disc space narrowing. 11-16-2016 Unclassified (1 source) MCR Well Adult - In general the patient feels well with minor complaints (Complains of increase in arthritic pain, back is worse.), has decreased energy level and is sleeping well. The patient has a balanced diet and takes no supplemental vitamins & iron. The patient exercises none (active lifestyle) and sleeps 8 hours per night. The patient denies having trouble with bathing, dressing/grooming, toileting, preparing meals and ambulating. The patient denies having trouble with grocery shopping, driving, use of telephone, housework, laundry, preparing/taking medications and finances. The patient does not have Healthcare Power of Director Validation or Living Will. Note for MCR Well Adult : reviewed by [facility] 07-14-2016 Viral infection (1 source) Viral disease; Translations: [Viral infection, unspecified] 05-28-2023 Episodic Past or Other Problems Problem Classification Problem Date Documented Da te Episodic/Chronic Unclassified (1 source) Cough - The cough has been occurring in an intermittent (occurs after eating/drinking or when lying down.) pattern for 3 months. The course has been recurrent. The cough is characterized as dry. The cough occurs all the time. The cough is aggravated by the supine posture. Note for Cough : Patient was seen 10/19/2018 for bronchitis- started on Zpak.Was last seen 11/02/2018, had chest xray done and started him on Omeprazole for 30 days. Patient states that the cough did not improve while taking Omeprazole. Wonders if the cough could be a side effect of Lisinopril. reviewed by [facility] 12-15-2018 Unclassified (1 source) [ADDITIONAL REASON] Rash - The rash has been occurring in a persistent pattern for 3 weeks. The course has been constant. The rash is characterized as red. The rash was first seen on the lower extremity (bilateral feet). There has been associated itching and erythema. Note for Rash : Tried Triple Antibiotic ointment. reviewed by [facility] 12-15-2018 Unclassified (1 source) reckeck - Patient was in on 10/19/18 for bronchitis- was given flonase, zpak and pro air. Symptoms resolved other than his cough - it is now dry. Mostly noticing after he eats or drinks something. Feels like he has a tickle in his throat. Still using flonase and proair. Has felt bloated in upper abd since his surgery - had trouble with acid reflux around that time; took 1 month of med and felt better so quit it. 11-03-2018 Unclassified (1 source) Cold Symptoms - Symptoms include nasal congestion, runny nose, ear pain (thumps when he swallows - since back surgery in April), productive cough (can't cough it up) and wheezing, but do not include sore throat, fever, chills, general malaise or headache. The onset was gradual 2 week(s) ago. The symptoms occur constantly. The patient describes this as moderate in severity and unchanged. Current treatment includes non-prescription cold medication (cold and flu) and acetaminophen (none today). The patient has not been exposed to an individual with similar symptoms. Medical history includes tonsillectomy, but patient denies history of seasonal allergies, recurrent sinusitis, recurrent strep pharyngitis, asthma or recurrent ear infections. 10-19-2018 Unclassified (1 source) Dizziness - The onset of the dizziness has been acute and has been occurring in an intermittent pattern for months. The course has been recurrent. The dizziness is characterized as spinning of the environment and feeling in the head. The dizziness is precipitated by position change and head turning. There has been associated nausea, ear fullness and neck pain. The symptoms have been associated with tinnitus. Note for Dizziness : Tried Meclizine with no improvement. reviewed by [facility] 08-16-2018 Unclassified (1 source) Dizziness - The onset of the dizziness has been acute and has been occurring in a persistent pattern for 2 weeks. The course has been constant. The dizziness is characterized as lightheadedness. The dizziness is precipitated by position change. There has been associated nausea and tinnitus (left ear), while there has been no associated vomiting, headache, fever, ear pain or ear fullness. Note for Dizziness : Complains of sinus congestion. reviewed by [facility] 06-27-2018 Unclassified (1 source) Pre-operative clearance - Surgical procedure(s) planned: other (Back surgery). Date of procedure: (Apr 11) Surgeon: (Dr Niño) and Location of procedure: ([facility]) There have been no problems with general anesthesia or blood/blood products. Prosthetics include dentures and eye glasses. Note for Pre-operative clearance : reviewed by [facility] 03-24-2018 Unclassified (1 source) Shoulder pain - The onset of the shoulder pain has been gradual following no specific incident and has been occurring in an intermittent pattern for 4 months. The course has been recurrent. The pain is characterized as a mild dull aching (but sharp pains come and go.). The pain is described as being located in the left shoulder and is aggravated by overhead activity and lifting. Relieving factors include heat and medication (Alleve or Tylenol). The symptoms have been associated with painful ROM and decreased ROM. There has been no previous diagnostic testing. There have been no previous evaluations. Note for Shoulder pain : Pt also has hx of arthritis in back. The Alleve used to work with getting rid of pain but not helping any more. Pain is all across lower back. Pain is nonradiaiting however bottoms of feet will feel numb. reviewed by [facility] 06-21-2014 Unclassified (1 source) Well Adult, male - The patient feels well with minor complaints (Complains of arthritic pain in back and knees. ), has good energy level and is sleeping well. The patient has a balanced diet and takes no supplemental vitamins & iron. The patient exercises daily (walks 1 hour daily). The patient sleeps 7 hours per night. Note for Well Adult, male : reviewed by [facility] 04-04-2013 Unclassified (1 source) Follow up consultation - The patient is here to follow-up after hospitalization on : (d/c 12/25). Current symptoms include abdominal pain. Note for Consultation follow-up : Pt was in the hospital for sigmoid diverticulitis, abd is muh better but still has pain at times, pt was started on cipro and flagyl. 12-22-2012 Unclassified (1 source) Abdominal pain - The onset of the abdominal pain has been sudden and has been occurring in a persistent pattern for 3 days. The course has been increasing. The pain is described as a moderate sharp pain and dull ache. The pain is located in the right upper quadrant and radiates to the epigastrium, right upper quadrant, left upper quadrant, periumbilical area, right lower quadrant and left lower quadrant. The symptoms have no relieving factors. The symptoms have been associated with bloody stools (black diarrhea on Tuesday ) and constipation (yesterday but did have a bm today that was normal), while the symptoms have not been associated with nausea or vomiting. Note for Abdominal pain : Patient no longer has his appendix. Patient has a history of a bowel blockage and diverticulitis. 12-16-2012 Unclassified (1 source) Cold Symptoms - Symptoms include sneezing, nasal congestion, ear pain, productive cough, general malaise and headache, but do not include sore throat. The onset was sudden 1 week(s) ago. The symptoms occur constantly. The patient describes this as moderate in severity and worsening. Current treatment includes non-prescription cold medication. The patient has been exposed to an individual with similar symptoms. Medical history includes tonsillectomy, but patient denies history of seasonal allergies, recurrent sinusitis, recurrent strep pharyngitis, asthma or recurrent ear infections. 05-22-2012 Unclassified (1 source) MCR Well Adult - In general the patient feels well with minor complaints (Complains of fatigue and back pain.), has decreased energy level and is sleeping poorly (Wakes up tired.). The patient has a balanced diet and takes no supplemental vitamins & iron. The patient exercises daily (Walks) and sleeps 7 hours per night. Over the past 2 weeks, the patient has been feeling little interest or pleasure in doing things, but has not been feeling down, depressed, or hopeless. Date of most recent cholesterol screening : (03-08-12). Date of most recent glucose screening : (03-08-12). Patient has not had a Zostavax vaccine. Patient has not had a Pneumovax vaccine. Date of most recent influenza vaccine : (several years ago.). Last Tetanus booster: more than 10 year(s) ago. PSA results : (03-08-12 (1.3)). Note for MCR Well Adult : reviewed by [facility] 03-15-2012 Unclassified (1 source) Cold Symptoms - Symptoms include ear fullness, sore throat, dry cough, general malaise and headache, but do not include fever. The onset was sudden 1 week(s) ago. The symptoms occur constantly. The patient describes this as moderate in severity and worsening. Current treatment includes non-prescription cold medication. Note for Upper respiratory infection : reviewed by [facility] 12-06-2011 Results Test Name Value Interpretation Reference Range Facil ity Vital Signs Date Time Vital Sign Value Performing Clinician Facility 05-28-2023 13:32-0500 Body temperature 99.61 [degF] Ernesto Patel APRN.EDUARDO Work Phone: [facility] 05-28-2023 13:32-0500 Body weight 75.48 kg Ernesto Patel APRN.EDUARDO Work Phone: [facility] 05-28-2023 13:32-0500 Diastolic blood pressure 60 mm[Hg] [facility] [employer] FORMER Work Phone: [facility] 05-28-2023 13:32-0500 Heart rate 96 /min Ernesto Patel [employer] Work Phone: [facility] 05-28-2023 13:32-0500 Respiratory rate 16 /min [facility] [employer] [employer] Work Phone: [facility] 05-28-2023 13:32-0500 SaO2% (BldA) [Mass fraction] 97 % [facility] [employer] FORMER Work Phone: [facility] 05-28-2023 13:32-0500 Systolic blood pressure 112 mm[Hg] [facility] [employer] FORMER Work Phone: [facility] 12-15-2018 06:54-0400 Body height 168.91 cm Renetta Corrigan RN [facility], [employer] 12-15-2018 06:54-0400 Body mass index (BMI) [Ratio] 24.32 kg/m2 Renetta Corrigan RN [facility] [employer] [facility] [employer] 12-15-2018 06:54-0400 Body surface area Derived from formula 1.79 m2 Renetta Corrigan RN [facility] [facility] [employer]. 12-15-2018 06:54-0400 Body temperature 97.9 [degF] Renetta Corrigan RN [employer]. Encounters Encounter Date Encounter Type Care Provider Facility Start: 05-29-2023 Telephone encounter Poly Mindy baron [employer] FORMER Work Phone: [facility] Care Procedures Date Procedure Procedure Detail Performing Clinician Start: 08-10-2022 PSA screening PRINCE [facility] Plan of Treatment Date Care Activity Detail Author Start: 05-28-2023 End: 06-11-2023 COVID & INFLUENZA A/B & RSV NAAT, ROUTINE COVID & INFLUENZA A/B & RSV NAAT, ROUTINE Microbiology Routine Viral illness Suspected COVID-19 virus infection Expected: 05/28/2023, Expires: 06/11/2023 [facility] Work Phone: Immunizations Immunization Date Immunization Notes Care Provider Heather lamb 03-15-2019 influenza virus vaccine, unspecified formulation Varinder Pappas MD Work Phone: [employer]. 03-15-2019 influenza, injectabl e, quadrivalent, contains preservative Varinder Pappas MD Work Phone: [employer]; [employer] Payers Date Payer Category Payer Medicare [employer] MEDICARE [employer] MEDICARE PPO [id number] 2021-Present [phone] [place] [address] PPO [id number] 2015 Medicare [id number] 1945 Unknown [id number] 1945 Unknown [id number] 1945 Unknown [id number] Unknown [facility]-[facility] Social History Date Type Detail Facility Start: 05-28-2023 Tobacco smoking status NHIS Ex-smoker [facility] History of tobacco use Current smoker [facility] History of tobacco use Cigarette Smoker [facility] Start: 05-28-2023 Tobacco use and exposure Smokeless tobacco non-user [facility] Start: 05-28-2023 History of Social function [employer]. Start: 05-28-2023 Tobacco use panel [facility] Start: 1945 Sex Assigned At Not on file [facility] Tobacco Use: Tobacco Use: ; F ormer smoker. [employer] Male [employer]. Work Phone: NEGATED: Highlighted rowStart: NINF History of tobacco use Passive smoker [facility] Note 05-29-2023 Telephone Encounter - Deann Pickens MA - 05/29/2023 9:27 AM ESTTelephone Encounter - Poly Briscoe APRN.CNP - 05/29/2023 8:20 AM EST Note Date & Type Note Facility 05-29-2023 Miscellaneous Notes Formattin g of this note might be different from the original. Pt was notified of the results. Pt verbalized understanding. Deann Pickens MA Please reach out and discuss following with patient You tested positive for COVID-19. Follow the CDC guidelines for isolation: 1. Everyone, regardless of vaccination status, should stay home for 5 days. 2. If you have no symptoms or your symptoms are resolving after 5 days, you can leave your house. 3. Continue to wear a mask around others for 5 additional days. If you have a fever, continue to stay home until your fever resolves, even if it is longer than 5 days. You may be eligible for additional treatments for COVID-19. Please call our office as soon as possible to schedule a virtual visit to discuss your eligibility for antiviral or monoclonal antibody therapy. Please monitor your symptoms, and for any worrisome symptoms, call your primary care provider or schedule a visit with [facility]. A test is not recommended to return to work/school when meeting the above criteria. Poly Briscoe APRN.EDUARDO documented in this encounter [facility] Progress note 05-28-2023 Note Date & Type Note Facility 05-28-2023 Note HNO ID: [id number] Author: ERNESTO PATEL APRN.EDUARDO Service: ? Author Type: Nurse Practitioner Type: Progress Notes Filed: 05/28/2023 13:58 Note Text: Subjective HPI Patient presents to urgent care with chief complaint of fever and cough. Duration of symptoms 3 days. Associated symptoms with today's chief complaint are on and off headache, muscle aches, fatigue, nonproductive cough, and fever. Patient stated symptoms started abruptly. Patient states they have used [id number] medication with some success. No known sick contacts. recently became ill a few days ago. Patient denies any pain at this time. Patient states he is feeling better today than he has yesterday. Patient denies any visual changes, visual disturbance, shortness of breath, rash, exercise intolerance, pleuritic pain, productive cough, abdominal pain, nausea, vomiting, chest pain, or change in bowel or bladder habits. Past medical history prescription medications allergies reviewed. .Patient presents with: Flu Like Symptoms: Onset Tuesday History reviewed. No pertinent past medical history. History reviewed. No pertinent surgical history. ALLERGIES Patient has no known allergies. MEDICATIONS atorvastatin (LIPITOR) 20 mg tablet Take 1 tablet by mouth once daily. DULoxetine (CYMBALTA) 60 mg capsule Take 1 capsule by mouth every 12 hours. Pregabalin (LYRICA) 200 mg capsule Take 200 mg by mouth daily at bedtime. HYDROcodone-acetaminophen (NORCO) 5-325 mg per tablet predniSONE (DELTASONE) 20 mg tablet Take 1 tablet by mouth once daily. Cholecalciferol, Vitamin D3, 50 mcg (2,000 unit) cap Take 1 capsule by mouth once daily. aspirin 81 mg chewable tablet Take 1 tablet by mouth once daily. History reviewed. No pertinent family history. Social History Tobacco Use Smoking status: Former Types: Cigarettes Passive exposure: Never Smokeless tobacco: Never BP 112/60 Pulse 96 Temp 37.6 ?C (99.6 ?F) (Right Tympanic) Resp 16 Wt 75.5 kg (166 lb 6.4 oz) SpO2 97% Review of Systems Constitutional: Positive for chills, fever and malaise/fatigue. HENT: Positive for congestion and sore throat. Negative for ear discharge, ear pain and sinus pain. Eyes: Negative for blurred vision, pain, discharge and redness. Respiratory: Positive for cough. Negative for hemoptysis, sputum production, shortness of breath, wheezing and stridor. Cardiovascular: Negative for chest pain. Gastrointestinal: Negative for abdominal pain, diarrhea, nausea and vomiting. Musculoskeletal: Positive for myalgias. Skin: Negative for itching and rash. Neurological: Positive for headaches. Negative for dizziness. Objective Physical Exam Constitutional: General: He is not in acute distress. Appearance: He is not diaphoretic. HENT: Head: Normocephalic. Jaw: No trismus, tenderness, swelling or pain on movement. Nose: Congestion present. Mouth/Throat: Mouth: Mucous membranes are moist. Pharynx: Oropharynx is clear. Uvula midline. No pharyngeal swelling, oropharyngeal exudate, posterior oropharyngeal erythema or uvula swelling. Eyes: Conjunctiva/sclera: Conjunctivae normal. Pupils: Pupils are equal, round, and reactive to light. Cardiovascular: Rate and Rhythm: Normal rate and regular rhythm. Heart sounds: Normal heart sounds. Pulmonary: Effort: Pulmonary effort is normal. No tachypnea, accessory muscle usage or respiratory distress. Breath sounds: Normal breath sounds. No stridor. No wheezing, rhonchi or rales. Abdominal: General: There is no distension. Palpations: Abdomen is soft. Tenderness: There is no abdominal tenderness. There is no guarding or rebound. Musculoskeletal: Cervical back: Normal range of motion and neck supple. No edema, erythema, rigidity or tenderness. No pain with movement. Normal range of motion. Lymphadenopathy: Cervical: No cervical adenopathy. Skin: General: Skin is warm and dry. Neurological: Mental Status: He is alert and oriented to person, place, and time. ASSESSMENT/PLAN: 1. Viral illness - ICD9: 079.99, ICD10: B34.9 (primary diagnosis) - COVID AND INFLUENZA A/B AND RSV NAAT, ROUTINE 2. Suspected COVID-19 virus infection - ICD9: V01.79, ICD10: Z20.822 - COVID AND INFLUENZA A/B AND RSV NAAT, ROUTINE Patient nontoxic-appearing. No evidence of bacterial infection. Suspicious of viral illness. Out of window for Tamiflu. Is interested in antiviral therapies if test positive for COVID-19. Patient was educated on supportive therapies. Patient will follow up with primary care provider as needed. Patient was instructed to immediately proceed to emergency room for any new, worsening, or symptoms lasting longer than anticipated. The patient's clinical presentation is otherwise unremarkable at this time. Based on exam and clinical finding, the patient is stable for discharge. Plan of care was discussed with patient. Patient verbalizes understanding (more content not included)... [facility] Instructions 05-28-2023 Patient Instructions Note Date & Type Note Facility 05-28-2023 Instructions [facility] - 05/28/2023 1:52 PM EST How to Manage Common Symptoms Associated with COVID for Adults Fever- Fever is a temperature over 100.4 F and can occur when the body is fighting an infection. To help treat a fever: Drink plenty of fluids and stay well hydrated. Eat small amounts of easy to digest food. Rest. Your body needs rest to recover, but getting up and moving around the house frequently is a good idea. You should try to continue doing your normal daily activities (bathing, toileting, grooming, cooking), though you will probably feel tired, and need to rest often. Avoid any heavy activity or exercise, as this will increase your body temperature. Dress in light clothing and stay covered in a light sheet. Keep the room temperature cool. Take a slightly warm (not cold or cool) bath, or apply damp washcloths to the forehead and wrists. Cough- Cough is a common symptom associated with COVID and can be bothersome. To help treat a cough: Stay well hydrated. Try warm water or tea with lemon and/or honey to help soothe the cough. Use a humidifier to add moisture to the air. Try a product with menthol, like a cough drop or a rub for your chest such as Vicks, which can help reduce cough. Try cough drops. Avoid smoking and other strong odors or perfumes. Try breathing exercises to keep your lungs open and clear. Take a big deep breath through your nose and hold for 5 seconds before slowly releasing. Repeat frequently, while you are awake. Congestion- Runny nose or nasal congestion can occur with COVID. Treatment can help relieve symptoms: Try OTC nasal saline spray, or nasal saline rinse to relieve mucus congestion. Nasal strips can help keep nasal passages open, to increase airflow. Elevating your head with an extra pillow in bed can help reduce congestion. Using a humidifier can increase moisture in the air, and make breathing easier. Sore Throat- Another common symptom with COVID, can be managed at home by: Stay well hydrated. Gargle with salt water - mix teaspoon salt with 1 cup of warm water and gargle. This helps to loosen mucus in the back of the throat and may reduce discomfort. Try ice chips, popsicles or lozenges to soothe the throat. Nausea/Vomiting/Diarrhea- These are common symptoms, and staying hydrated is most important. If you are nauseous or vomiting, start with small sips of water every 10-15 minutes and increase as tolerated. You can try sucking an ice cube too. If tolerating, you can try pedialyte or Gatorade, or flat sprite or alexus-kailash. Start slowly and increase as you are able to. Instead of meals, try smaller, more frequent snacks. Try eating bland foods like crackers, toast, rice, and applesauce. Avoid spicy, greasy or fried foods and dairy containing foods. Even if you aren't feeling hungry due to lack of smell or taste, it is important to try to take in some food when you are able. After drinking and eating, rest in an upright position for up to two hours as needed to help decrease nauseous feelings. Try closing your eyes, avoid moving and watching TV. Avoid strong odors that can make you feel more nauseated. When to seek emergency medical attention Look for emergency warning signs for COVID-19. If having any of these symptoms, seek emergency medical care immediately: Trouble breathing Persistent pain or pressure in the chest New confusion Inability to wake or stay awake Bluish lips or face *This list is not all possible symptoms. Please call your medical provider for any other symptoms that are severe or concerning to you. documented in this encounter [facility] History of Present illness Narrative 05-28-2023 Ernesto Patel APRN.[facility] - 05/28/2023 1:43 PM EST Note Date & Type Note Facility 05-28-2023 History of Presen t illness Narrative Subjective HPI Patient presents to urgent care with chief complaint of fever and cough. Duration of symptoms 3 days. Associated symptoms with today's chief complaint are on and off headache, muscle aches, fatigue, nonproductive cough, and fever. Patient stated symptoms started abruptly. Patient states they have used [id number] medication with some success. No known sick contacts. recently became ill a few days ago. Patient denies any pain at this time. Patient states he is feeling better today than he has yesterday. Patient denies any visual changes, visual disturbance, shortness of breath, rash, exercise intolerance, pleuritic pain, productive cough, abdominal pain, nausea, vomiting, chest pain, or change in bowel or bladder habits. Past medical history prescription medications allergies reviewed. .Patient presents with: Flu Like Symptoms: Onset Tuesday History reviewed. No pertinent past medical history. History reviewed. No pertinent surgical history. ALLERGIES Patient has no known allergies. MEDICATIONS atorvastatin (LIPITOR) 20 mg tablet Take 1 tablet by mouth once daily. DULoxetine (CYMBALTA) 60 mg capsule Take 1 capsule by mouth every 12 hours. Pregabalin (LYRICA) 200 mg capsule Take 200 mg by mouth daily at bedtime. HYDROcodone-acetaminophen (NORCO) 5-325 mg per tablet predniSONE (DELTASONE) 20 mg tablet Take 1 tablet by mouth once daily. Cholecalciferol, Vitamin D3, 50 mcg (2,000 unit) cap Take 1 capsule by mouth once daily. aspirin 81 mg chewable tablet Take 1 tablet by mouth once daily. History reviewed. No pertinent family history. Social History Tobacco Use Smoking status: Former Types: Cigarettes Passive exposure: Never Smokeless tobacco: Never BP 112/60 Pulse 96 Temp 37.6 C (99.6 F) (Right Tympanic) Resp 16 Wt 75.5 kg (166 lb 6.4 oz) SpO2 97% Review of Systems Constitutional: Positive for chills, fever and malaise/fatigue. HENT: Positive for congestion and sore throat. Negative for ear discharge, ear pain and sinus pain. Eyes: Negative for blurred vision, pain, discharge and redness. Respiratory: Positive for cough. Negative for hemoptysis, sputum production, shortness of breath, wheezing and stridor. Cardiovascular: Negative for chest pain. Gastrointestinal: Negative for abdominal pain, diarrhea, nausea and vomiting. Musculoskeletal: Positive for myalgias. Skin: Negative for itching and rash. Neurological: Positive for headaches. Negative for dizziness. Objective Physical Exam Constitutional: General: He is not in acute distress. Appearance: He is not diaphoretic. HENT: Head: Normocephalic. Jaw: No trismus, tenderness, swelling or pain on movement. Nose: Congestion present. Mouth/Throat: Mouth: Mucous membranes are moist. Pharynx: Oropharynx is clear. Uvula midline. No pharyngeal swelling, oropharyngeal exudate, posterior oropharyngeal erythema or uvula swelling. Eyes: Conjunctiva/sclera: Conjunctivae normal. Pupils: Pupils are equal, round, and reactive to light. Cardiovascular: Rate and Rhythm: Normal rate and regular rhythm. Heart sounds: Normal heart sounds. Pulmonary: Effort: Pulmonary effort is normal. No tachypnea, accessory muscle usage or respiratory distress. Breath sounds: Normal breath sounds. No stridor. No wheezing, rhonchi or rales. Abdominal: General: There is no distension. Palpations: Abdomen is soft. Tenderness: There is no abdominal tenderness. There is no guarding or rebound. Musculoskeletal: Cervical back: Normal range of motion and neck supple. No edema, erythema, rigidity or tenderness. No pain with movement. Normal range of motion. Lymphadenopathy: Cervical: No cervical adenopathy. Skin: General: Skin is warm and dry. Neurological: Mental Status: He is alert and oriented to person, place, and time. ASSESSMENT/PLAN: 1. Viral illness - ICD9: 079.99, ICD10: B34.9 (primary diagnosis) - COVID & INFLUENZA A/B & RSV NAAT, ROUTINE 2. Suspected COVID-19 virus infection - ICD9: V01.79, ICD10: Z20.822 - COVID & INFLUENZA A/B & RSV NAAT, ROUTINE Patient nontoxic-appearing. No evidence of bacterial infection. Suspicious of viral illness. Out of window for Tamiflu. Is interested in antiviral therapies if test positive for COVID-19. Patient was educated on supportive therapies. Patient will follow up with primary care provider as needed. Patient was instructed to immediately proceed to emergency room for any new, worsening, or symptoms lasting longer than anticipated. The patient's clinical presentation is otherwise unremarkable at this time. Based on exam and clinical finding, the patient is stable for discharge. Plan of care was discussed with patient. Patient verbalizes understanding and agrees to plan of care. This note was generated using [employer] software. It may contain errors in wording, punctuation, or spelling. Ernesto Patel APRN.EDUARDO documented in this encounter [facility] Evaluation note Note Date & Type Note Facility documented in this encounter [facility] Summary Purpose Family History Cerebrovascular Accident Status:Active Comment s:Father. Sister. Coronary Artery Disease Status:Active Comments :Mother. Sister. Diabetes Mellitus Type II Status:Active Commen ts:Mother. Father. Brother. Hypertension Status:Active Comments:Mother. Sister. Rheumatoid Arthritis Status:Active Comments:Fa ther. Advance Directives No Advanced Directives Records FoundNo Advanced Directives Records FoundNo Advanced Directives Records Found Health Concerns Infection Onset Date Last Indicated Resolved Time COVID-19 Rule-Out 05/28/2023 05/28/2023 Infection Onset Date Last Indicated Resolved Time COVID-19 Rule-Out 05/28/2023 05/28/2023 05/29/2023 1:06 AM EST COVID-19 Confirmed 05/28/2023 05/28/2023 Additional Source Comments (unrecognized sect ion and content) No Status Records FoundNo Status Records FoundNo Status Records Found INFORMATION SOURCE (unrecogn ized section and content) DATE CREATED AUTHOR AUTHOR'S ORGANIZ ATION 02/26/2023 [facility] [place] [facility] ([place]) DATE CREATED AUTHOR AUTHOR'S ORGANIZ ATION 05/29/2023 [facility] Source Comments (unrecognize d section and content) In the event this informatio n is protected by the Federal Confidentiality of Alcohol and Drug Abuse Patient Records regulations: The Federal rules restrict any use of the information to criminally investigate or prosecute any alcohol or drug abuse patient.[facility] the event this information is protected by the Federal Confidentiality of Alcohol and Drug Abuse Patient Records regulations: The Federal rules restrict any use of the information to criminally investigate or prosecute any alcohol or drug abuse patient.[facility] Reason for Visit (unrecogniz ed section and content) Reason Comments Results Care Teams (unrecognized sec tion and content) Earth [employer] Relationship Specialty Start Date End Date Chelle Villela MD [address] [facility] [address] [place] [address] PCP - General Internal Medicine 05/28/23 FOR RECORDS PERTAINING TO PATIENTS WHO ARE [...] BE BASED ON THE PRIMARY CLINICAL RECORDS. [employer] provides no warranty or guarantee of the accuracy or completeness of information in this document.
--- NOTE | 2023-07-13 14:14 | NEURO ---
NCS and/or EMG Patient Report Ordering Doctor: Tomas Hansen DATE OF SERVICE: 07/13/23 Philipp presents for electrodiagnostic testing of the upper limbs. He reports numbness and tingling in both hands. He has similar symptoms in the lower extremities. Electrodiagnostic findings: Bilateral median motor nerve demonstrates normal distal latency and amplitude with reduced conduction velocity bilaterally. Left ulnar motor nerve demonstrates normal distal latency and amplitude with normal conduction velocity. Right ulnar motor nerve demonstrates normal distal latency and amplitude with reduction in conduction velocity. There is no significant drop in conduction across the cubital tunnel. Normal median and ulnar F?waves. Normal median sensory latency at the wrist. Normal median palmar response bilaterally. Normal ulnar and radial sensory responses. Needle EMG testing was performed in the upper limbs. All muscles tested showed no evidence of denervation with normal motor unit action potentials. Electrodiagnostic assessment: This is an abnormal study in the upper limbs 1. Electrodiagnostic findings demonstrate demyelination in median motor nerve bilaterally and the right ulnar motor nerve. There is no specific evidence for carpal tunnel or cubital tunnel syndrome. Recommend correlation with testing of the lower limbs to better evaluate for peripheral polyneuropathy. 2. There is no electrodiagnostic evidence for cervical radiculopathy. Multi Select Codes Neurology Neurology Interp Codes: 31910-82 Musc test done w/n test comp (interp) (2) and 05709-21 Nrv cndj test 13/> studies (interp)
== END | disposition home or self-care (01) ==
PROVIDERS: PCP Internal Medicine; Referring Provider Psychiatry & Neurology Neurology; Visit Provider Psychiatry & Neurology Neurology
DX: R20.2 Paresthesia of skin (principal); G56.23 Lesion of ulnar nerve, bilateral upper limbs
CPT/HCPCS: 95886; 95913

== ENCOUNTER → 2023-08-02 | Outpatient (CLI) | payer MEDICARE, SELFPAY ==
--- NOTE | 2023-08-02 10:54 | NEURO_ITS ---
NCS and/or EMG Patient Report Ordering Doctor: Tomas Hansen DATE OF SERVICE: 08/02/23 Clinical Summary: 77 year old male patient with symptoms of numbness, tingling, and pain in the distal lower extremities. Patient also has a history of lumbar spine surgery and sciatica. Nerve Conduction Studies Summary: The peroneal motor conduction velocities were reduced bilaterally. The tibial motor conduction velocities were reduced mildly bilaterally Needle Examination Summary: Needle examination demonstrated a higher proportion of motor unit action potentials with reduced recruitment, increased amplitude, increased duration, and polyphasia in the bilateral semitendinosus, bilateral tibialis anterior, bilateral peroneus longus, bilateral medial gastrocnemius, and bilateral flexor digitorum longus muscles. Impression: This is an abnormal study with the following electrodiagnostic findings - 1) Chronic, bilateral L5 radiculopathies 2) Suggestive of, but not definitively diagnostic, chronic bilateral S1 radiculo pathies There is no definite electrodiagnostic evidence of a large-fiber peripheral polyneuropathy. Please be aware, however, that conventional electrodiagnostic testing (EMG/NCS) cannot rule out a small-fiber based peripheral polyneuropathy. Multi Select Codes Neurology Neurology Interp Codes: 01461-40 Musc test done w/n test comp (interp) (2) and 06337-79 Nrv cndj test 9-10 studies (interp)
== END | disposition home or self-care (01) ==
LOC: PSN 09:18
PROVIDERS: PCP Internal Medicine; Referring Provider Psychiatry & Neurology Neurology; Visit Provider Psychiatry & Neurology Neurology
DX: R20.2 Paresthesia of skin (principal); M54.50 Low back pain, unspecified; G62.9 Polyneuropathy, unspecified
CPT/HCPCS: 95886; 95911

== ENCOUNTER → 2023-10-27 | Outpatient (CLI) | payer MEDICARE, SELFPAY ==
[2023-10-27 13:23] LABS: Hemoglobin A1c 6.3 % (3.8-5.6)
== END | disposition home or self-care (01) ==
LOC: MTLAB 09:24
PROVIDERS: PCP Internal Medicine; Referring Provider Psychiatry & Neurology Neurology; Visit Provider Psychiatry & Neurology Neurology
DX: R73.9 Hyperglycemia, unspecified (principal)
CPT/HCPCS: 36415; 83036

== ENCOUNTER 2023-11-16 11:00 | Outpatient (RCR) | payer MEDICARE, SELFPAY ==
--- NOTE | 2023-10-18 13:32 | HP.PTEVAL ---
Patient's Visit Information Visit Information Visit Information: GRETCHEN RUVALCABA is a 77 year old M referred to Physical Therapy by Dr. Tomas Hansen MD with a diagnosis of LBP, B L radic. Date of Evaluation: 10/18/23 Physical Therapist: JOSELITO Cruz Visit Plan Frequency: 2x /Week Duration: 2 Months Plan: 2X/ week for 8 weeks for trunk stretching, neutral core stability, LE strength, postural exercises with HEP HEP: PT and LTR Subjective Subjective: He has a pinched nerve in his back and hurts into B groin and into the front of the legs and if he sits too long he has pain in his R buttock and shoots down the front of thigh generally not past the knee but occ pain down into the foot. Sitting makes him worse. He is fine most of the day walking around. His ordering and MRI. He has not had any injections. He had back surgery in 2018 and cleaned out the stenosis. He has some trouble going up steps. He sleeps maybe 4 hours because of the pain and nightmares. Pain back pain: Pain Intensity (Out of 10): 4 Le g pain: Pain Intensity (Out of 10): 1 Objective Objective: Gait: walks with decrease stance time on the L LE and walks with wider LULU Standing heel and toe raises: pt is able to heel and toe raise Patella DTR's R 3+/3 and L 0/3 LE MMT B hip flex 4/5 with some increase back pain B knee ext 4/5 B knee flex 4/5 SLUMP test -B SLR -B Tight B HS Bridge X 5 (hard at first but feels it still on the R but eased up a little) X5 more and increase pinch in back Good B piriformis length ( more groin pain) Prone Lying to CARRIE X 5 (increase pull across LB) LTR (increase pain with legs to the L) Trunk AROM: flex 50%, ext 25%, SB B 50%, Rot B 50% Balance/Special Test Scores Oswestry Low Back Score: 12 Goals Goal 1:: I HEP Goal Time Frame: 6-8 Weeks Goal 2:: Decrease pain by 50% with ADL's Goal Time Frame: 6-8 Weeks Goal 3:: Be able to bridge without pain Goal Time Frame: 6-8 Weeks Goal 4:: Be able to sit at night without having pain Goal Time Frame: 6-8 Weeks Rehabilitation Potential Rehabilitation Potential: Good Anticipated Interventions Patient/Client Instruction: Educate patient on: Condition and Plan of Care For the Purpose of:: To decrease pain, To decrease swelling/inflammation, To increase ROM, To improve nutrient delivery to tissue, To improve muscle performance and motor function, To improve ability to perform ADL's, To increase tolerance to activity/condition/position, To improve performance and independence with ADL's, To improve health of tissue, To decrease soft tissue restriction and To increase flexibility/ROM Therapeutic Exercise to Include: Strength training, Postural training, Flexibilty training, Gait and locomotor training, Neuromotor development, Active ROM and Dynamic Lumbar Stabilization For the Purpose of:: To decrease pain, To decrease swelling/inflammation, To increase ROM, To improve nutrient delivery to tissue, To improve muscle performance and motor function, To improve ability to perform ADL's, To increase tolerance to activity/condition/position, To improve performance and independence with ADL's, To decrease level of supervision to perform tasks, To improve ability of physical actions for home/community/work/leisure, To improve gait and locomotor functions, To improve health of tissue, To decrease soft tissue restriction and To increase flexibility/ROM Manual Therapy Techniques to Include: Soft tissue mobilization For the Purpose of:: To increase ROM, To decrease soft tissue restriction and To increase flexibility/ROM Cryotherapy (ice pack, ice massage): Yes Thermo therapy (hot pack): Yes For the Purpose of:: To decrease pain, To increase ROM and To improve nutrient delivery to tissue Text: Thank you for the opportunity to evaluate your patient. For Medicare and Medicare HMO plans, please review the plan of care and approve it. It will need to be FAXED BACK to us at [phone] for Medicare purposes. For Medicare only, by signing this I certify the plan of care. Please let me know if there are questions or concerns regarding this plan of care. Physician Signature: Date:
--- NOTE | 2023-11-16 11:36 | HP.PTDCSUM ---
Discharge Summary D/C summary: It has been my pleasure to treat GRETCHEN RUVALCABA referred by Dr. Tomsa Hansen MD, with the diagnosis of LBP, B L radic for a total of 9 visit(s). Discharge Date: 11/16/23 Please see the following information for a summary of their discharge status. Subjective Subjective: Pt reports that he did some exercises this morning. He has pain. He had some pain after PT after last time. He has an MRI on the . PT is not helping. Pain back pain: Pain Intensity (Out of 10): 6 Le g pain: Pain Intensity (Out of 10): 7 Overall Improvement % Improvement: 0 Objective Objective/Function: No better. Goals Goal 1:: I HEP Goal Progress: Goal Met Goal 2:: Decrease pain by 50% with ADL's Goal Progress: Not Progressing Goal 3:: Be able to bridge without pain Goal Progress: Not Progressing Goal 4:: Be able to sit at night without having pain Goal Progress: Not Progressing Plan Plan: DC PT to get MRI. Pt will continue to do as much HEP as he can without causing increase pain. D/C Information Discharge Comments: DC PT for MRI d/c sentence: If there are questions or concerns regarding this patient's physical therapy, please feel free to call me at [phone]. Thank you for the referral of this patient. Sincerely, Rachana Krueger, MPT Balance/Gait/Functional tests Balance/Special Test Scores Oswestry Low Back Score: 21 Improvement % Improvement: 0
== END 2023-11-16 19:00 | disposition home or self-care (01) ==
LOC: PT 11:00
PROVIDERS: PCP Internal Medicine; Referring Provider Psychiatry & Neurology Neurology; Visit Provider Psychiatry & Neurology Neurology
DX: M54.50 Low back pain, unspecified (principal); M54.16 Radiculopathy, lumbar region
CPT/HCPCS: 97110; 97161; 97530

== ENCOUNTER → 2023-11-18 | Outpatient (CLI) | payer MEDICARE, SELFPAY ==
--- NOTE | 2023-11-18 13:11 | MRI_ITS ---
HISTORY: low back pain and bilateral lumbar radiculopathy. TECHNIQUE: Multiplanar and multisequence MR images of the lumbar spine were obtained before and after the intravenous demonstration of 15 cc Clariscan. 191 images. COMPARISON: 02/08/2018. FINDINGS: VERTEBRAE: Vertebral body heights maintained. Degenerative bone marrow endplate changes at multiple levels. Mild facet edema at the left L4 level. Interval decompressive laminectomies at L4 and L5. ALIGNMENT: 2 mm retrolisthesis of L2-3. Mild S-shaped thoracolumbar scoliosis. SPINAL CANAL: Normal morphology and position of the conus medullaris at L1. No epidural collection or enhancing intradural extramedullary mass. INTERVERTEBRAL DISCS: Posterior disc bulge osteophyte complexes with facet arthropathy at multiple levels. T12-L1: Minimal narrowing of the thecal sac with moderate bilateral foraminal narrowing based on the sagittal images, similar to prior. L1-2: Mild central canal stenosis with moderate left and mild right foraminal narrowing, not increased from prior. L2-3: Moderate central canal stenosis mildly increased from prior. Moderate left and mild right foraminal narrowing. L3-4, L4-5: Decompressive laminectomy with resolution of spinal canal stenosis. Severe bilateral foraminal narrowing with probable bilateral L3 and L4 nerve root impingement in the foramen, increased from prior. L5-S1: Decompressive laminectomy. No significant central canal stenosis. Moderate bilateral foraminal narrowing, not increased from prior. SOFT TISSUES: Posterior subcutaneous and intramuscular edema without paraspinal fluid collection. MRI/Spine Lumbar W/WO Contrast IMPRESSION: Interval decreased presence of laminectomy of L3-4, L4-5, and L5-S1 without significant spinal canal stenosis. Increased severe bilateral foraminal narrowing with potential nerve root impingement at L3-4 and L4-5. Persistent moderate bilateral foraminal narrowing at L5-S1. Multilevel degenerative disc disease. Moderate bilateral foraminal narrowing at T12-L1. Mild spinal canal stenosis with moderate left and mild right foraminal narrowing of L1-2. Moderate spinal canal stenosis of L2-3, increased from prior, with moderate left and mild right foraminal narrowing. Electronically Signed: Glenis Vasquez MD at 15:39 EDT ,
[2023-11-18 13:52] LABS: CREATININE FINGERSTICK < 1.0 mg/dL (0.70-1.30); EGFR FINGERSTICK > 60.0000 mL/min (>60)
== END | disposition home or self-care (01) ==
PROVIDERS: PCP Internal Medicine; Referring Provider Psychiatry & Neurology Neurology; Visit Provider Psychiatry & Neurology Neurology
DX: M54.50 Low back pain, unspecified (principal); M54.16 Radiculopathy, lumbar region
CPT/HCPCS: 72158; A9575

== ENCOUNTER → 2024-01-30 | Outpatient (CLI) | payer MEDICARE, SELFPAY ==
[2024-02-01 12:10] LABS: Albumin 4.1 g/dL (2.9-4.4); Alpha-1-Globulins 0.2 g/dL (0.0-0.4); Alpha-2-Globulins 0.6 g/dL (0.4-1.0); Gamma Globulin 0.8 g/dL (0.4-1.8); Immunoglobulin A 208 mg/dL (61-437); Immunoglobulin G 856 mg/dL (603-1613); Immunoglobulin M 41 mg/dL (15-143); PROEL- TOTAL PROTEIN 6.7 g/dL (6.0-8.5)
== END | disposition home or self-care (01) ==
PROVIDERS: PCP Internal Medicine; Referring Provider Psychiatry & Neurology Neurology; Visit Provider Psychiatry & Neurology Neurology
DX: G62.9 Polyneuropathy, unspecified (principal)
CPT/HCPCS: 36415; 82784; 84165; 86334; 86335

== ENCOUNTER → 2024-07-23 | Outpatient (CLI) | payer MEDICARE, SELFPAY ==
--- NOTE | 2024-07-23 09:27 | RAD_ITS ---
PROCEDURE: SHOULDER MIN 2 VIEWS ([facility]), 07/23/2024 REASON FOR EXAM: RIGHT SHOULDER PAIN TECHNIQUE: AP, lateral, axillary, and scapular Y-views of the right shoulder were obtained. COMPARISON: None FINDINGS: Fracture/dislocation: None visible. Joint space(s): Moderate to advanced loss of joint space along the inferior glenohumeral join with small osteophytes t. Moderate loss of AC joint space. Soft tissues: Unremarkable. Foreign bodies: None visible. Bone mineralization: Suspect demineralization. Other: Aortic atherosclerosis. Likely calcified granuloma in the right lung. Thoracic spondylosis not well evaluated. RAD/Shoulder min 2 Views IMPRESSION: 1. Suspect demineralization without visible acute displaced fracture. 2. Degenerative changes at additional description as above. Reading Location: [id number]
== END | disposition home or self-care (01) ==
LOC: MTRAD 09:15
PROVIDERS: PCP Internal Medicine; Referring Provider Psychiatry & Neurology Neurology; Visit Provider Psychiatry & Neurology Neurology
DX: M25.511 Pain in right shoulder (principal)
CPT/HCPCS: 73030

== ENCOUNTER → 2024-11-20 | Outpatient (CLI) | payer MEDICARE, SELFPAY ==
--- NOTE | 2024-11-20 12:30 | BD_ITS ---
PROCEDURE: DEXA BONE DENSITY STUDY 11/20/2024 REASON FOR EXAM: OSTEOPENIA SEEN ON SHOULDER X-RAYS M, age 78 y/o . Postmenopausal. TECHNIQUE: DEXA BONE DENSITY STUDY COMPARISON: None FINDINGS: BMD and T-SCORES Lumbar spine: 1.060 g/cm2, T-score -0.1 Levels: L1 through L4 Left femoral neck: 0.598 g/cm2, T-score -2.4 Femoral neck comparison data not recommended for monitoring change. Left total hip: 0.865 g/cm2, T-score -1.1 Right femoral neck: 0.569 g/cm2, T-score -2.7 Femoral neck comparison data not recommended for monitoring change. Right total hip: 0.849 g/cm2, T-score -1.2 The World Health Organization has defined the following categories based on bone density: Normal bone density: T-score equal to or greater than -1.0 Osteopenia: T-score between -1.0 and -2.5 Osteoporosis: T-score equal to or less than -2.5 The patient does meet the pharmacological treatment recommendations for prevention of osteoporosis. BD/Dexa Bone Density Study IMPRESSION: OSTEOPOROSIS. Recommend follow-up as clinically warranted. Reading Location: [facility]
--- NOTE | 2024-11-20 12:30 | BD_ITS ---
PROCEDURE: DEXA BONE DENSITY STUDY 11/20/2024 REASON FOR EXAM: OSTEOPENIA SEEN ON SHOULDER X-RAYS M, age 78 y/o . Postmenopausal. TECHNIQUE: DEXA BONE DENSITY STUDY COMPARISON: None FINDINGS: BMD and T-SCORES Lumbar spine: 1.060 g/cm2, T-score -0.1 Levels: L1 through L4 Left femoral neck: 0.598 g/cm2, T-score -2.4 Femoral neck comparison data not recommended for monitoring change. Left total hip: 0.865 g/cm2, T-score -1.1 Right femoral neck: 0.569 g/cm2, T-score -2.7 Femoral neck comparison data not recommended for monitoring change. Right total hip: 0.849 g/cm2, T-score -1.2 The World Health Organization has defined the following categories based on bone density: Normal bone density: T-score equal to or greater than -1.0 Osteopenia: T-score between -1.0 and -2.5 Osteoporosis: T-score equal to or less than -2.5 The patient does meet the pharmacological treatment recommendations for prevention of osteoporosis. BD/Dexa Bone Density Study IMPRESSION: OSTEOPOROSIS. Recommend follow-up as clinically warranted. Reading Location: [facility]
== END | disposition home or self-care (01) ==
LOC: OPBD 12:23
PROVIDERS: PCP Internal Medicine; Referring Provider Psychiatry & Neurology Neurology; Visit Provider Psychiatry & Neurology Neurology
DX: M85.811 Other specified disorders of bone density and structure, right shoulder (principal)
CPT/HCPCS: 77080